=== PATIENT | female | born 1940 | race Caucasian/White ===

== ENCOUNTER 2016-05-07 07:04 | Outpatient (CLI) | payer MEDICARE ==
[2016-05-07 10:52] LABS: Bilirubin Negative (Negative); Blood, Urine Moderate (Negative); Glucose, Urine (Dipstick) Negative (Negative); Ketone, Urine Negative (Negative); Nitrite Negative (Negative); Protein, Urine (Dipstick) Negative (Neg-Trace); Urobilinogen 0.2 mg/dL (0.2-1.0)
[2016-05-07 11:00] LABS: Squamous Epithelial 0-3 HPF (0-3)
[2016-05-07 11:01] LABS: Bacteria/HPF 4+ HPF (None Seen)
== END 2016-05-07 07:05 | disposition home or self-care (01) ==
LOC: NAV LABSP 07:04
PROVIDERS: ATTEND Family Medicine
DX: R30.9 Painful micturition, unspecified (principal)
CPT/HCPCS: 81001; 87077; 87086; 87186

== ENCOUNTER 2016-05-12 11:44 | Outpatient (CLI) | payer MEDICARE | END 2016-05-12 11:45 | disposition home or self-care (01) | LOC: NAV LABSP 11:44 | PROVIDERS: ATTEND Family Medicine | DX: L02.511 Cutaneous abscess of right hand (principal) | CPT/HCPCS: 87070; 87077; 87205 ==

== ENCOUNTER 2016-06-02 11:19 | Outpatient (CLI) | payer MEDICARE | END 2016-06-02 11:20 | disposition home or self-care (01) | LOC: NAV LABSP 11:19 | PROVIDERS: ATTEND Family Medicine | DX: A04.7 Enterocolitis due to Clostridium difficile (principal) | CPT/HCPCS: 87324; 87449 ==

== ENCOUNTER 2016-06-16 14:12 | Emergency (ER) | payer MEDICARE ==
[2016-06-16 15:22] LABS: ALT (SGPT) 9 U/L (0-55); AST (SGOT) 10 U/L (5-34); Alkaline Phosphatase 90 U/L (40-150); Anion Gap 16 mmol/L (10-20); BUN (Urea Nitrogen) 10 mg/dL (9.8-20.1); Bilirubin, Total 0.3 mg/dL (0.2-1.2); Calc. Creatinine Clearance 0 mL/min (70-130); Calcium 8.4 mg/dL (7.8-10.44); Carbon Dioxide 19 mmol/L (23-31); Chloride 103 mmol/L (98-107); Estimated GFR-MDRD 63; Protein, Total 6.7 g/dL (5.8-8.1)
[2016-06-16] MEDS ORDERED: Sodium Chloride 0.9% 500 ML ONE (15:22)
[2016-06-16 15:26] LABS: #Monocytes 0.6 thou/uL (0.11-0.59); #Neutrophils 5.2 thou/uL (1.40-6.50); %Basophils 0.6 % (0.0-1.0); %Eosinophils 0.5 % (0.0-10.0); %Lymphocytes 14.8 % (21.0-51.0); Hematocrit 34.8 % (36.0-47.0); White Blood Cell (WBC) Count 6.9 thou/uL (4.8-10.8)
[2016-06-16 15:51] LABS: Bilirubin Negative (Negative); Blood, Urine Moderate (Negative); Glucose, Urine (Dipstick) Negative (Negative); Ketone, Urine Negative (Negative); Nitrite Negative (Negative); Protein, Urine (Dipstick) 100 mg/dL (Neg-Trace); Urobilinogen 0.2 mg/dL (0.2-1.0)
[2016-06-16 16:04] LABS: Bacteria/HPF 4+ HPF (None Seen); Squamous Epithelial 0-3 HPF (0-3)
[2016-06-16] MEDS ORDERED: Sulfameth/Trimethoprim DS 800-160mg TAB ONE (16:37)
[2016-06-16] MEDS ORDERED: metroNIDAZOLE 500 MG TAB ONE (16:38)
== END 2016-06-16 17:18 | disposition home or self-care (01) ==
LOC: NAV ERS 14:12
DX: R19.7 Diarrhea, unspecified (principal); N39.0 Urinary tract infection, site not specified; E11.9 Type 2 diabetes mellitus without complications; E03.9 Hypothyroidism, unspecified; E78.5 Hyperlipidemia, unspecified; I11.0 Hypertensive heart disease with heart failure; I50.9 Heart failure, unspecified; F41.9 Anxiety disorder, unspecified; F32.9 Major depressive disorder, single episode, unspecified
CPT/HCPCS: 36415; 51701; 80053; 81003; 81015; 85025; 87077; 87086; 87186; 87324; 87449; 96360; A4353; J7050

== ENCOUNTER 2016-07-22 08:33 | Emergency (ER) | payer MEDICARE ==
[2016-07-22 08:59] LABS: Bilirubin Negative (Negative); Blood, Urine Small (Negative); Clarity Cloudy (Clear); Glucose, Urine (Dipstick) Negative (Negative); Leukocyte Large (Negative); Nitrite Positive (Negative); Protein, Urine (Dipstick) Negative (Neg-Trace); Specific Gravity, Urine 1.015 (1.005-1.030); Urobilinogen 0.2 mg/dL (0.2-1.0)
[2016-07-22 09:21] LABS: Bacteria/HPF 3+ HPF (None Seen); Other Microscopic Description NO; Squamous Epithelial 0-3 HPF (0-3)
[2016-07-22 09:45] LABS: #Basophils 0.1 thou/uL (0.0-0.2); #Eosinphils 0.1 thou/uL (0.0-0.7); #Lymphocytes 1.2 thou/uL (1.20-3.40); #Monocytes 0.7 thou/uL (0.11-0.59); #Neutrophils 3.9 thou/uL (1.40-6.50); %Basophils 1.1 % (0.0-1.0); %Lymphocytes 20.2 % (21.0-51.0); %Monocytes 11.6 % (0.0-10.0); %Neutrophils 65.1 % (42.0-75.0); Hemoglobin 9.4 g/dL (12.0-16.0); Mean Corpuscular HGB CONC 30.7 g/dL (32.0-36.0); Mean Corpuscular Hemoglobin 25.4 pg (27.0-31.0); Mean Corpuscular Volume 82.8 fl (81.0-99.0); Mean Platelet Volume 5.4 fL (7.4-10.4); Platelet Count 219 thou/uL (130-400); RBC Distribution Width 17.3 % (11.5-14.5)
[2016-07-22 09:49] LABS: Anion Gap 14 mmol/L (10-20); BUN (Urea Nitrogen) 15 mg/dL (9.8-20.1); Calc. Creatinine Clearance 0 mL/min (70-130); Calcium 8.3 mg/dL (7.8-10.44); Carbon Dioxide 23 mmol/L (23-31); Chloride 103 mmol/L (98-107); Estimated GFR-MDRD 50; Glucose 177 mg/dL (83-110); Potassium 4.7 mmol/L (3.5-5.1); Sodium 135 mmol/L (136-145)
== END 2016-07-22 10:40 | disposition home or self-care (01) ==
LOC: NAV ERS 08:33
DX: N30.00 Acute cystitis without hematuria (principal); R19.7 Diarrhea, unspecified; I25.10 Atherosclerotic heart disease of native coronary artery without angina pectoris; E11.9 Type 2 diabetes mellitus without complications; E78.5 Hyperlipidemia, unspecified; I10 Essential (primary) hypertension; M19.90 Unspecified osteoarthritis, unspecified site; F41.9 Anxiety disorder, unspecified; F32.9 Major depressive disorder, single episode, unspecified
CPT/HCPCS: 51701; 80048; 81003; 81015; 85025; 87077; 87086; 87186; 87324; 87449; A4353

== ENCOUNTER 2016-08-11 13:11 | Outpatient (CLI) | payer MEDICARE ==
[2016-08-11 13:28] LABS: Bilirubin Negative (Negative); Blood, Urine Large (Negative); Clarity Turbid (Clear); Glucose, Urine (Dipstick) Negative (Negative); Leukocyte Large (Negative); Nitrite Negative (Negative); Protein, Urine (Dipstick) 100 mg/dL (Neg-Trace); Urobilinogen 0.2 mg/dL (0.2-1.0); pH, Urine 5.5 (5.0-9.0)
[2016-08-11 13:54] LABS: Specific Gravity, Urine 1.028 (1.002-1.036)
[2016-08-11 13:56] LABS: Bacteria/HPF 1+ HPF (None Seen); Renal Epithelial 0-3 HPF (0-3); Squamous Epithelial 0-3 HPF (0-3); Yeast-All Forms 3+ HPF (None Seen)
== END 2016-08-11 13:12 | disposition home or self-care (01) ==
LOC: NAV LAB 13:11
PROVIDERS: ATTEND Nurse Practitioner Family
DX: N39.0 Urinary tract infection, site not specified (principal); A04.7 Enterocolitis due to Clostridium difficile
CPT/HCPCS: 81003; 81015; 87086; 87324; 87449

== ENCOUNTER 2016-10-20 14:58 | Outpatient (CLI) | payer MEDICARE ==
[2016-10-20 16:05] LABS: ALT (SGPT) 6 U/L (8-55); AST (SGOT) 10 U/L (5-34); Albumin 3.2 g/dL (3.4-4.8); Alkaline Phosphatase 102 U/L (40-150); Anion Gap 15 mmol/L (10-20); BUN (Urea Nitrogen) 18 mg/dL (9.8-20.1); Bilirubin, Direct 0.2 mg/dL (0.1-0.3); Bilirubin, Total 0.3 mg/dL (0.2-1.2); Calc. Creatinine Clearance 0 mL/min (70-130); Calcium 8.4 mg/dL (7.8-10.44); Carbon Dioxide 22 mmol/L (23-31); Chloride 102 mmol/L (98-107); Estimated GFR-MDRD 33; Glucose 302 mg/dL (83-110); Potassium 4.5 mmol/L (3.5-5.1); Protein, Total 6.6 g/dL (6.0-8.3); Sodium 134 mmol/L (136-145)
[2016-10-20 16:36] LABS: #Eosinphils 0.2 thou/uL (0.0-0.7); #Lymphocytes 1.5 thou/uL (1.20-3.40); #Monocytes 0.9 thou/uL (0.11-0.59); #Neutrophils 6.8 thou/uL (1.40-6.50); %Basophils 0.3 % (0.0-1.0); %Eosinophils 2.3 % (0.0-10.0); %Lymphocytes 15.5 % (21.0-51.0); %Monocytes 9.9 % (0.0-10.0); Differential Comment SCANNED; Hemoglobin 7.4 g/dL (12.0-16.0); Mean Corpuscular HGB CONC 29.6 g/dL (32.0-36.0); Mean Corpuscular Hemoglobin 23.1 pg (27.0-31.0); Mean Corpuscular Volume 78.3 fl (81.0-99.0); Mean Platelet Volume 5.6 fL (7.4-10.4); Platelet Count 230 thou/uL (130-400); RBC Distribution Width 15.3 % (11.5-14.5); Red Blood Cell (RBC) Count 3.19 mill/uL (4.20-5.40); White Blood Cell (WBC) Count 9.4 thou/uL (4.8-10.8)
[2016-10-20 17:15] LABS: Cardiac Risk 2.9 (Less than 4.5)
[2016-10-21 11:00] LABS: Bilirubin Negative (Negative); Blood, Urine Large (Negative); Clarity Cloudy (Clear); Glucose, Urine (Dipstick) Negative (Negative); Leukocyte Moderate (Negative); Nitrite Negative (Negative); Protein, Urine (Dipstick) 100 mg/dL (Neg-Trace)
[2016-10-21 11:17] LABS: RBC/HPF GREATER THAN 50-TNTC HPF (0-3)
[2016-10-21 11:18] LABS: Bacteria/HPF 3+ HPF (None Seen); Squamous Epithelial 0-3 HPF (0-3); WBC/HPF 21-50 HPF (0-3)
== END 2016-10-20 14:59 | disposition home or self-care (01) ==
LOC: NAVSJIPCSP 14:58 → NAV LAB 14:59
PROVIDERS: ATTEND Nurse Practitioner Family
DX: R35.0 Frequency of micturition (principal); E78.5 Hyperlipidemia, unspecified; I10 Essential (primary) hypertension; E11.9 Type 2 diabetes mellitus without complications; D64.9 Anemia, unspecified; R39.9 Unspecified symptoms and signs involving the genitourinary system
CPT/HCPCS: 80048; 80061; 80076; 81003; 81015; 83036; 84443; 85025; 87086

== ENCOUNTER 2016-11-03 13:40 | Observation (INO) | payer MEDICARE ==
[2016-11-03 14:23] LABS: #Eosinphils 0.3 thou/uL (0.0-0.7); #Lymphocytes 1.4 thou/uL (1.20-3.40); #Monocytes 0.5 thou/uL (0.11-0.59); #Neutrophils 5.4 thou/uL (1.40-6.50); %Basophils 0.6 % (0.0-1.0); %Eosinophils 3.7 % (0.0-10.0); %Lymphocytes 18.2 % (21.0-51.0); %Monocytes 6.9 % (0.0-10.0); %Neutrophils 70.7 % (42.0-75.0); Hemoglobin 7.2 g/dL (12.0-16.0); Mean Corpuscular HGB CONC 29.5 g/dL (32.0-36.0); Mean Corpuscular Hemoglobin 22.2 pg (27.0-31.0); Mean Corpuscular Volume 75.3 fl (81.0-99.0); Mean Platelet Volume 4.6 fL (7.4-10.4); Platelet Count 240 thou/uL (130-400); Red Blood Cell (RBC) Count 3.25 mill/uL (4.20-5.40); White Blood Cell (WBC) Count 7.7 thou/uL (4.8-10.8)
[2016-11-03 14:37] LABS: ALT (SGPT) 6 U/L (8-55); AST (SGOT) 10 U/L (5-34); Albumin 3.1 g/dL (3.4-4.8); Alkaline Phosphatase 90 U/L (40-150); Anion Gap 14 mmol/L (10-20); BUN (Urea Nitrogen) 23 mg/dL (9.8-20.1); Bilirubin, Total 0.2 mg/dL (0.2-1.2); CK (CPK) 47 U/L (29-168); Calc. Creatinine Clearance 0 mL/min (70-130); Calcium 8.4 mg/dL (7.8-10.44); Carbon Dioxide 20 mmol/L (23-31); Chloride 103 mmol/L (98-107); Estimated GFR-MDRD 29; Globulin 3.8 g/dL (2.4-3.5); Glucose 268 mg/dL (83-110); Potassium 4.1 mmol/L (3.5-5.1); Protein, Total 6.9 g/dL (6.0-8.3); Sodium 133 mmol/L (136-145)
[2016-11-03 14:39] LABS: CKMB 2.5 ng/mL (0-6.6); Troponin I Less than 0.010 ng/mL (< 0.028)
[2016-11-03 14:47] LABS: Bilirubin Negative (Negative); Blood, Urine Negative (Negative); Glucose, Urine (Dipstick) 250 mg/dL (Negative); Leukocyte Small (Negative); Nitrite Positive (Negative); Protein, Urine (Dipstick) Negative (Neg-Trace); Specific Gravity, Urine 1.025 (1.005-1.030); Urobilinogen 0.2 mg/dL (0.2-1.0)
[2016-11-03 14:48] LABS: Clarity SL HAZY (Clear)
[2016-11-03 14:56] LABS: Bacteria/HPF 4+ HPF (None Seen); RBC/HPF 0-3 HPF (0-3); Squamous Epithelial 0-3 HPF (0-3)
[2016-11-03] MEDS ORDERED: Sodium Chloride 0.9% 100 ML ONE (15:35)
[2016-11-03] MEDS ORDERED: cefTRIAXone\\ROCEPHIN 1 GM VIAL ONE (15:35)
[2016-11-03 16:20] VITALS: BMI 29.1
[2016-11-03] MEDS ORDERED: Furosemide 20 MG/2 ML VIAL SLOW IVP SCH (18:15)
[2016-11-03] MEDS ORDERED: Acetaminophen 325 MG TAB PO PRN (19:24)
[2016-11-03] MEDS ORDERED: Milk Of Magnesia 30 ML UDCUP PO PRN (19:24)
[2016-11-03] MEDS ORDERED: Ondansetron ODT 4 MG TAB PO PRN (19:24)
[2016-11-03] MEDS ORDERED: Ergocalciferol 1.25 MG(50,000 UNITS) CAP PO SCH (19:30)
[2016-11-03] MEDS: Metoprolol Tartrate 50 MG TAB PO SCH (20:42)
[2016-11-03] MEDS: Saccharomyces boulardii 250 MG CAP PO SCH (20:43)
[2016-11-03] MEDS ORDERED: Dextrose 5% in Water 1,000 ML IV PRN (20:45)
[2016-11-03] MEDS ORDERED: HumaLOG 300 UNITS/3 ML VIAL SC PRN ×2 (20:45)
[2016-11-03] MEDS ORDERED: Dextrose 50% Abboject 50 ML SYRINGE IVP PRN (20:47)
[2016-11-03] MEDS ORDERED: Levemir Flexpen 100 UNITS/ML PEN SC SCH (21:00)
[2016-11-03] MEDS ORDERED: Donepezil HCl 10 MG TAB PO SCH (21:00)
[2016-11-03] MEDS ORDERED: Simvastatin 20 MG TAB PO SCH (21:00)
[2016-11-03] MEDS ORDERED: Gabapentin 300 MG CAP PO SCH (21:00)
[2016-11-03] MEDS ORDERED: Melatonin 3 MG TAB PO SCH (21:00)
[2016-11-03] MEDS ORDERED: Lorazepam 0.5 MG TAB PO SCH (21:00)
[2016-11-03] MEDS ORDERED: Lorazepam 1 MG TAB PO SCH (21:15)
[2016-11-03] MEDS ORDERED: Sodium Chloride 0.9% 10 ML ONE (21:56)
[2016-11-04] MEDS ORDERED: Levothyroxine Sodium 25 MCG TAB PO SCH (06:00)
[2016-11-04] MEDS ORDERED: Potassium Chloride 20 MEQ TAB PO SCH (08:00)
[2016-11-04] MEDS ORDERED: Ferrous Sulfate 325 MG TAB PO SCH (08:00)
[2016-11-04] MEDS: Metoprolol Tartrate 50 MG TAB PO SCH (08:06)
[2016-11-04] MEDS: Saccharomyces boulardii 250 MG CAP PO SCH (08:06)
[2016-11-04] MEDS ORDERED: Levemir Flexpen 100 UNITS/ML PEN SC SCH (09:00)
[2016-11-04] MEDS ORDERED: Aspirin 81 mg Enteric Coated Tablet PO SCH (09:00)
[2016-11-04] MEDS ORDERED: Allopurinol 100 MG TAB PO SCH (09:00)
[2016-11-04] MEDS ORDERED: TROSPIUM 20 MG TABLET PO SCH (09:00)
[2016-11-04] MEDS ORDERED: Lorazepam 1 MG TAB PO SCH (09:00)
[2016-11-04] MEDS ORDERED: Folic Acid 1 MG TAB PO SCH (09:00)
[2016-11-04] MEDS ORDERED: Pioglitazone HCl 15 MG TAB PO SCH (09:00)
[2016-11-04 13:00] LABS: Anion Gap 15 mmol/L (10-20); BUN (Urea Nitrogen) 17 mg/dL (9.8-20.1); Calc. Creatinine Clearance 40 mL/min (70-130); Calcium 8.5 mg/dL (7.8-10.44); Carbon Dioxide 23 mmol/L (23-31); Chloride 103 mmol/L (98-107); Estimated GFR-MDRD 35; Glucose 139 mg/dL (83-110); Potassium 4.6 mmol/L (3.5-5.1); Sodium 136 mmol/L (136-145)
[2016-11-04 13:31] LABS: #Basophils 0.1 thou/uL (0.0-0.2); #Eosinphils 0.5 thou/uL (0.0-0.7); #Lymphocytes 1.5 thou/uL (1.20-3.40); #Monocytes 0.7 thou/uL (0.11-0.59); #Neutrophils 5.7 thou/uL (1.40-6.50); %Basophils 0.9 % (0.0-1.0); %Eosinophils 5.7 % (0.0-10.0); %Lymphocytes 18.1 % (21.0-51.0); %Monocytes 7.7 % (0.0-10.0); %Neutrophils 67.6 % (42.0-75.0); Hemoglobin 10.3 g/dL (12.0-16.0); Mean Corpuscular Hemoglobin 24.6 pg (27.0-31.0); Mean Corpuscular Volume 79.3 fl (81.0-99.0); Mean Platelet Volume 5.2 fL (7.4-10.4); Platelet Count 278 thou/uL (130-400); RBC Distribution Width 15.6 % (11.5-14.5); Red Blood Cell (RBC) Count 4.19 mill/uL (4.20-5.40); White Blood Cell (WBC) Count 8.4 thou/uL (4.8-10.8)
[2016-11-04 13:47] LABS: Hemoglobin A1c 7.5 % (4.0-6.0)
[2016-11-04 19:44] VITALS: BP 148/70; TEMP 96.1
== END 2016-11-04 20:09 | disposition home or self-care (01) ==
LOC: NAV ERS 13:40 → NAV ACUTE 16:03
PROVIDERS: ADMIT Family Medicine; ATTEND Family Medicine
PROC: 30233N1 Transfusion of Nonautologous Red Blood Cells into Peripheral Vein, Percutaneous Approach (ICD-10-PCS; principal; 2016-11-03)
DX: D64.9 Anemia, unspecified (principal); E11.65 Type 2 diabetes mellitus with hyperglycemia; I10 Essential (primary) hypertension; E78.5 Hyperlipidemia, unspecified; E03.9 Hypothyroidism, unspecified; M10.9 Gout, unspecified; G62.9 Polyneuropathy, unspecified; R32 Unspecified urinary incontinence; Z79.82 Long term (current) use of aspirin; Z79.899 Other long term (current) drug therapy
CPT/HCPCS: 36416; 36430; 51701; 80048; 80053; 81003; 81015; 82553; 83036; 83605; 84484; 85025; 86850; 86900; 86901; 87077; 87086; 87186; 93005; 94760; 96374; 96375; A4216; A4353; G0378; J0696; J1815; J1940; J7050; P9016

== ENCOUNTER 2016-11-09 12:05 | Inpatient (IN) | payer MEDICARE ==
[2016-11-09] MEDS ORDERED: Loperamide HCl 2 MG CAP PO PRN (13:18)
[2016-11-09] MEDS ORDERED: Acetaminophen 325 MG TAB PO PRN (13:18)
[2016-11-09] MEDS ORDERED: Guaifenesin DM 100-10/5 ML UDCUP PO PRN (13:18)
[2016-11-09] MEDS: cefTRIAXone\\ROCEPHIN 2 GM in Sodium Chloride 0.9% 100 ML IVPB SCH (13:56)
[2016-11-09] MEDS: Sodium Chloride 0.9% 20 ML ONE (13:57)
[2016-11-09] MEDS: Atorvastatin Calcium 10 MG TAB PO SCH (20:48)
[2016-11-09] MEDS: Donepezil HCl 10 MG TAB PO SCH (20:49)
[2016-11-09] MEDS: Famotidine 20 MG TAB PO SCH (20:49)
[2016-11-09] MEDS: Gabapentin 300 MG CAP PO SCH (20:49)
[2016-11-09] MEDS: TROSPIUM 20 MG TABLET PO SCH (20:50)
[2016-11-09] MEDS: Metoprolol Tartrate 50 MG TAB PO SCH (20:50)
[2016-11-09] MEDS: Simvastatin 20 MG TAB PO SCH (20:50)
[2016-11-09] MEDS: Docusate 100 MG CAP PO SCH (20:51)
[2016-11-09] MEDS ORDERED: Donepezil HCl 10 MG TAB PO SCH (21:00)
[2016-11-09] MEDS ORDERED: Lorazepam 1 MG TAB PO SCH (21:00)
[2016-11-09] MEDS ORDERED: Lorazepam 0.5 MG TAB PO SCH (21:00)
[2016-11-09] MEDS ORDERED: Non-Formulary Item 1 EACH (Metoprolol Tartrate [Lopressor] 100 MG) PO SCH (21:00)
[2016-11-09] MEDS ORDERED: Gabapentin 300 MG CAP PO SCH (21:00)
[2016-11-09] MEDS ORDERED: Melatonin 3 MG TAB PO SCH (21:15)
[2016-11-10 05:14] LABS: #Basophils 0.1 thou/uL (0.0-0.2); #Eosinphils 0.2 thou/uL (0.0-0.7); #Lymphocytes 1.8 thou/uL (1.20-3.40); #Monocytes 0.6 thou/uL (0.11-0.59); #Neutrophils 3.1 thou/uL (1.40-6.50); %Basophils 0.9 % (0.0-1.0); %Eosinophils 3.3 % (0.0-10.0); %Lymphocytes 31.4 % (21.0-51.0); %Monocytes 10.1 % (0.0-10.0); %Neutrophils 54.2 % (42.0-75.0); Anisocytosis MODERATE=16-30 cells (100X) (0-5/hpf); Hemoglobin 11.8 g/dL (12.0-16.0); MDiff Complete? YES; Mean Corpuscular HGB CONC 30.7 g/dL (32.0-36.0); Mean Corpuscular Hemoglobin 23.9 pg (27.0-31.0); Mean Corpuscular Volume 77.9 fl (81.0-99.0); Mean Platelet Volume 5.2 fL (7.4-10.4); Microcytosis SLIGHT = 6-15 cells (100X) (0-5/hpf); Platelet Count 285 thou/uL (130-400); RBC Distribution Width 16.5 % (11.5-14.5); Red Blood Cell (RBC) Count 4.94 mill/uL (4.20-5.40); White Blood Cell (WBC) Count 5.8 thou/uL (4.8-10.8)
[2016-11-10] MEDS: Levothyroxine Sodium 50 MCG TAB PO SCH (05:30)
[2016-11-10] MEDS: Potassium Chloride 10 MEQ TAB PO SCH (08:10)
[2016-11-10] MEDS ORDERED: Levothyroxine Sodium 25 MCG TAB PO SCH (09:00)
[2016-11-10] MEDS ORDERED: Non-Formulary Item 1 EACH (Pioglitazone Hcl [Pioglitazone Hcl] 30 MG) PO SCH (09:00)
[2016-11-10] MEDS ORDERED: SOLIFENACIN SUCCINATE 10 MG PO SCH (09:00)
[2016-11-10] MEDS ORDERED: DULOXETINE HCL 60 MG PO SCH (09:00)
[2016-11-10] MEDS: Metoprolol Tartrate 50 MG TAB PO SCH ×2 (09:05→20:42)
[2016-11-10] MEDS: Docusate 100 MG CAP PO SCH ×2 (09:05→20:40)
[2016-11-10] MEDS: Pioglitazone HCl 15 MG TAB PO SCH (09:10)
[2016-11-10] MEDS: Aspirin 81 mg Enteric Coated Tablet PO SCH (09:10)
[2016-11-10] MEDS: TROSPIUM 20 MG TABLET PO SCH ×2 (09:10→20:42)
[2016-11-10] MEDS: Allopurinol 100 MG TAB PO SCH (09:10)
[2016-11-10] MEDS: Famotidine 20 MG TAB PO SCH ×2 (09:10→20:41)
[2016-11-10 09:15] LABS: ALT (SGPT) 7 U/L (8-55); AST (SGOT) 16 U/L (5-34); Albumin 3.1 g/dL (3.4-4.8); Alkaline Phosphatase 83 U/L (40-150); Anion Gap 14 mmol/L (10-20); BUN (Urea Nitrogen) 9 mg/dL (9.8-20.1); Bilirubin, Total 0.4 mg/dL (0.2-1.2); Calc. Creatinine Clearance 55 mL/min (70-130); Calcium 8.9 mg/dL (7.8-10.44); Carbon Dioxide 25 mmol/L (23-31); Chloride 101 mmol/L (98-107); Estimated GFR-MDRD 50; Globulin 3.8 g/dL (2.4-3.5); Glucose 137 mg/dL (83-110); Potassium 3.6 mmol/L (3.5-5.1); Protein, Total 6.9 g/dL (6.0-8.3); Sodium 136 mmol/L (136-145)
[2016-11-10] MEDS: Folic Acid 1 MG TAB PO SCH (09:15)
[2016-11-10] MEDS ORDERED: Sodium Chloride 0.9% 20 ML ONE (12:31)
[2016-11-10] MEDS ORDERED: Dextrose 50% Abboject 50 ML SYRINGE IVP PRN (13:47)
[2016-11-10] MEDS ORDERED: Dextrose 5% in Water 1,000 ML IV PRN (13:47)
[2016-11-10] MEDS: cefTRIAXone\\ROCEPHIN 2 GM in Sodium Chloride 0.9% 100 ML IVPB SCH (14:21)
[2016-11-10] MEDS: HumaLOG 300 UNITS/3 ML VIAL SC PRN (14:22)
[2016-11-10] MEDS: Donepezil HCl 10 MG TAB PO SCH (20:40)
[2016-11-10] MEDS: Atorvastatin Calcium 10 MG TAB PO SCH (20:40)
[2016-11-10] MEDS: Melatonin 3 MG TAB PO SCH (20:41)
[2016-11-10] MEDS: Gabapentin 300 MG CAP PO SCH (20:41)
[2016-11-10] MEDS: Simvastatin 20 MG TAB PO SCH (20:42)
[2016-11-11] MEDS: Lorazepam 1 MG TAB PO PRN ×2 (00:14→21:17)
[2016-11-11] MEDS: Levothyroxine Sodium 50 MCG TAB PO SCH (05:45)
[2016-11-11] MEDS: Potassium Chloride 10 MEQ TAB PO SCH (08:05)
[2016-11-11] MEDS: Allopurinol 100 MG TAB PO SCH (09:06)
[2016-11-11] MEDS: Aspirin 81 mg Enteric Coated Tablet PO SCH (09:07)
[2016-11-11] MEDS: Docusate 100 MG CAP PO SCH ×2 (09:08→21:16)
[2016-11-11] MEDS: Folic Acid 1 MG TAB PO SCH (09:09)
[2016-11-11] MEDS: Famotidine 20 MG TAB PO SCH ×2 (09:09→21:16)
[2016-11-11] MEDS: Metoprolol Tartrate 50 MG TAB PO SCH ×2 (09:09→21:16)
[2016-11-11] MEDS: TROSPIUM 20 MG TABLET PO SCH ×2 (09:10→21:16)
[2016-11-11] MEDS: Pioglitazone HCl 15 MG TAB PO SCH (09:10)
[2016-11-11] MEDS: HumaLOG 300 UNITS/3 ML VIAL SC PRN (12:10)
[2016-11-11] MEDS: cefTRIAXone\\ROCEPHIN 2 GM in Sodium Chloride 0.9% 100 ML IVPB SCH (14:15)
[2016-11-11] MEDS ORDERED: Sodium Chloride 0.9% 20 ML ONE (14:23)
[2016-11-11] MEDS: Melatonin 3 MG TAB PO SCH (21:16)
[2016-11-11] MEDS: Atorvastatin Calcium 10 MG TAB PO SCH (21:17)
[2016-11-11] MEDS: Donepezil HCl 10 MG TAB PO SCH (21:17)
[2016-11-11] MEDS: Gabapentin 300 MG CAP PO SCH (21:17)
[2016-11-12] MEDS: Levothyroxine Sodium 50 MCG TAB PO SCH (05:40)
[2016-11-12] MEDS: Folic Acid 1 MG TAB PO SCH (10:02)
[2016-11-12] MEDS: Aspirin 81 mg Enteric Coated Tablet PO SCH (10:02)
[2016-11-12] MEDS: Potassium Chloride 10 MEQ TAB PO SCH (10:02)
[2016-11-12] MEDS: Metoprolol Tartrate 50 MG TAB PO SCH ×2 (10:03→21:25)
[2016-11-12] MEDS: Famotidine 20 MG TAB PO SCH ×2 (10:03→21:26)
[2016-11-12] MEDS: Docusate 100 MG CAP PO SCH ×2 (10:03→21:25)
[2016-11-12] MEDS: Pioglitazone HCl 15 MG TAB PO SCH (10:04)
[2016-11-12] MEDS: TROSPIUM 20 MG TABLET PO SCH ×2 (10:04→21:26)
[2016-11-12] MEDS: Allopurinol 100 MG TAB PO SCH (10:04)
[2016-11-12] MEDS ORDERED: Sodium Chloride 0.9% 20 ML ONE (13:59)
[2016-11-12 14:19] VITALS: BMI 29.6
[2016-11-12] MEDS: cefTRIAXone\\ROCEPHIN 2 GM in Sodium Chloride 0.9% 100 ML IVPB SCH (14:42)
[2016-11-12] MEDS: Gabapentin 300 MG CAP PO SCH (21:25)
[2016-11-12] MEDS: Melatonin 3 MG TAB PO SCH (21:25)
[2016-11-12] MEDS: Donepezil HCl 10 MG TAB PO SCH (21:26)
[2016-11-12] MEDS: Atorvastatin Calcium 10 MG TAB PO SCH (21:26)
[2016-11-13] MEDS: Levothyroxine Sodium 50 MCG TAB PO SCH (05:46)
[2016-11-13 05:57] LABS: INR-International Normal Ratio 1.1; PTT 35.3 SEC (22.9-36.1); Prothrombin Time 14.1 SEC (12.0-14.7)
[2016-11-13] MEDS: Pioglitazone HCl 15 MG TAB PO SCH (08:16)
[2016-11-13] MEDS: Metoprolol Tartrate 50 MG TAB PO SCH ×2 (08:16→21:07)
[2016-11-13] MEDS: Allopurinol 100 MG TAB PO SCH (08:16)
[2016-11-13] MEDS: Famotidine 20 MG TAB PO SCH ×2 (08:17→21:09)
[2016-11-13] MEDS: Folic Acid 1 MG TAB PO SCH (08:17)
[2016-11-13] MEDS: Docusate 100 MG CAP PO SCH ×2 (08:17→21:10)
[2016-11-13] MEDS: TROSPIUM 20 MG TABLET PO SCH ×2 (08:19→21:10)
[2016-11-13] MEDS: Potassium Chloride 10 MEQ TAB PO SCH (08:26)
[2016-11-13] MEDS: Aspirin 81 mg Enteric Coated Tablet PO SCH (08:27)
[2016-11-13] MEDS: HumaLOG 300 UNITS/3 ML VIAL SC PRN (11:25)
[2016-11-13] MEDS: cefTRIAXone\\ROCEPHIN 2 GM in Sodium Chloride 0.9% 100 ML IVPB SCH (13:55)
[2016-11-13] MEDS: Gabapentin 300 MG CAP PO SCH (21:06)
[2016-11-13] MEDS: Atorvastatin Calcium 10 MG TAB PO SCH (21:07)
[2016-11-13] MEDS: Lorazepam 1 MG TAB PO PRN (21:08)
[2016-11-13] MEDS: Donepezil HCl 10 MG TAB PO SCH (21:09)
[2016-11-13] MEDS: Melatonin 3 MG TAB PO SCH (21:10)
[2016-11-14] MEDS: Levothyroxine Sodium 50 MCG TAB PO SCH (05:53)
[2016-11-14] MEDS: Pioglitazone HCl 15 MG TAB PO SCH (08:57)
[2016-11-14] MEDS: Allopurinol 100 MG TAB PO SCH (08:58)
[2016-11-14] MEDS: Folic Acid 1 MG TAB PO SCH (08:58)
[2016-11-14] MEDS: Potassium Chloride 10 MEQ TAB PO SCH (08:58)
[2016-11-14] MEDS: Famotidine 20 MG TAB PO SCH ×2 (08:59→21:42)
[2016-11-14] MEDS: Docusate 100 MG CAP PO SCH ×2 (08:59→21:42)
[2016-11-14] MEDS: Metoprolol Tartrate 50 MG TAB PO SCH ×2 (08:59→21:43)
[2016-11-14] MEDS: Aspirin 81 mg Enteric Coated Tablet PO SCH (09:00)
[2016-11-14] MEDS: TROSPIUM 20 MG TABLET PO SCH ×2 (09:00→21:43)
[2016-11-14] MEDS: cefTRIAXone\\ROCEPHIN 2 GM in Sodium Chloride 0.9% 100 ML IVPB SCH (14:03)
[2016-11-14] MEDS: HumaLOG 300 UNITS/3 ML VIAL SC PRN (17:35)
[2016-11-14] MEDS: Atorvastatin Calcium 10 MG TAB PO SCH (21:42)
[2016-11-14] MEDS: Gabapentin 300 MG CAP PO SCH (21:42)
[2016-11-14] MEDS: Donepezil HCl 10 MG TAB PO SCH (21:42)
[2016-11-14] MEDS: Melatonin 3 MG TAB PO SCH (21:43)
[2016-11-14] MEDS: Lorazepam 1 MG TAB PO PRN (21:43)
[2016-11-15] MEDS: Levothyroxine Sodium 50 MCG TAB PO SCH (06:08)
[2016-11-15] MEDS: Potassium Chloride 10 MEQ TAB PO SCH (08:05)
[2016-11-15 08:46] VITALS: BP 132/60; TEMP 97.1
[2016-11-15] MEDS: Docusate 100 MG CAP PO SCH (09:07)
[2016-11-15] MEDS: Allopurinol 100 MG TAB PO SCH (09:07)
[2016-11-15] MEDS: Aspirin 81 mg Enteric Coated Tablet PO SCH (09:07)
[2016-11-15] MEDS: Folic Acid 1 MG TAB PO SCH (09:08)
[2016-11-15] MEDS: Famotidine 20 MG TAB PO SCH (09:08)
[2016-11-15] MEDS: Pioglitazone HCl 15 MG TAB PO SCH (09:09)
[2016-11-15] MEDS: Metoprolol Tartrate 50 MG TAB PO SCH (09:09)
[2016-11-15] MEDS: TROSPIUM 20 MG TABLET PO SCH (09:11)
== END 2016-11-15 08:45 | disposition swing bed (61) | DRG 690 ==
LOC: NAV ACUTE 12:05
PROVIDERS: ADMIT Family Medicine; ATTEND Family Medicine
DX: N39.0 Urinary tract infection, site not specified (principal); E11.40 Type 2 diabetes mellitus with diabetic neuropathy, unspecified; F03.90 Unspecified dementia, unspecified severity, without behavioral disturbance, psychotic disturbance, mood disturbance, and anxiety; D64.9 Anemia, unspecified; B96.20 Unspecified Escherichia coli [E. coli] as the cause of diseases classified elsewhere; R53.1 Weakness; M1A.9XX0 Chronic gout, unspecified, without tophus (tophi); E78.5 Hyperlipidemia, unspecified; I10 Essential (primary) hypertension; G47.00 Insomnia, unspecified; F41.9 Anxiety disorder, unspecified; E66.9 Obesity, unspecified; Z68.29 Body mass index [BMI] 29.0-29.9, adult; F32.9 Major depressive disorder, single episode, unspecified; K21.9 Gastro-esophageal reflux disease without esophagitis; M16.12 Unilateral primary osteoarthritis, left hip; Z87.891 Personal history of nicotine dependence; Z88.8 Allergy status to other drugs, medicaments and biological substances; Z91.048 Other nonmedicinal substance allergy status
CPT/HCPCS: 36415; 36416; 80053; 85025; 85610; 85730; A4216; G8987-GO-CK; G8988-GO-CI; J0696; J7050

== ENCOUNTER 2016-11-15 09:27 | Inpatient (IN) | payer MEDICARE ==
[2016-11-15 11:47] VITALS: BMI 31.0
[2016-11-15] MEDS ORDERED: Fleet Enema 133 ML BOT PR PRN (13:23)
[2016-11-15] MEDS ORDERED: Milk Of Magnesia 30 ML UDCUP PO PRN (13:23)
[2016-11-15] MEDS ORDERED: Loperamide HCl 2 MG CAP PO PRN (13:23)
[2016-11-15] MEDS ORDERED: Calcium Carbonate 500 MG ChewTAB PO PRN (13:23)
[2016-11-15] MEDS ORDERED: Bisacodyl 5 MG TAB PO PRN (13:23)
[2016-11-15] MEDS: cefTRIAXone\\ROCEPHIN 2 GM in Sodium Chloride 0.9% 100 ML IVPB SCH (15:00)
[2016-11-15] MEDS ORDERED: Dextrose 50% Abboject 50 ML SYRINGE IVP PRN (18:33)
[2016-11-15] MEDS ORDERED: Dextrose 5% in Water 1,000 ML IV PRN (18:33)
[2016-11-15] MEDS ORDERED: Non-Formulary Item 1 EACH (Metoprolol Tartrate [Lopressor] 100 MG) PO SCH (21:00)
[2016-11-15] MEDS ORDERED: Lorazepam 0.5 MG TAB PO SCH (21:00)
[2016-11-15] MEDS ORDERED: Simvastatin 20 MG TAB PO SCH (21:00)
[2016-11-15] MEDS ORDERED: Lorazepam 1 MG TAB PO SCH (21:15)
[2016-11-15] MEDS: Gabapentin 300 MG CAP PO SCH (21:25)
[2016-11-15] MEDS: TROSPIUM 20 MG TABLET PO SCH (21:26)
[2016-11-15] MEDS: Donepezil HCl 10 MG TAB PO SCH (21:26)
[2016-11-15] MEDS: Atorvastatin Calcium 10 MG TAB PO SCH (21:26)
[2016-11-15] MEDS: Metoprolol Tartrate 50 MG TAB PO SCH (21:27)
[2016-11-15] MEDS: Famotidine 20 MG TAB PO SCH (21:28)
[2016-11-16] MEDS: Ondansetron ODT 4 MG TAB PO PRN ×2 (00:46→08:21)
[2016-11-16] MEDS: Levothyroxine Sodium 50 MCG TAB PO SCH (05:48)
[2016-11-16 07:28] LABS: ALT (SGPT) 8 U/L (8-55); AST (SGOT) 14 U/L (5-34); Albumin 3.2 g/dL (3.4-4.8); Alkaline Phosphatase 72 U/L (40-150); Anion Gap 16 mmol/L (10-20); BUN (Urea Nitrogen) 23 mg/dL (9.8-20.1); Bilirubin, Total 0.2 mg/dL (0.2-1.2); Calc. Creatinine Clearance 47 mL/min (70-130); Calcium 8.5 mg/dL (7.8-10.44); Carbon Dioxide 19 mmol/L (23-31); Chloride 103 mmol/L (98-107); Estimated GFR-MDRD 39; Globulin 3.7 g/dL (2.4-3.5); Glucose 156 mg/dL (83-110); Potassium 4.4 mmol/L (3.5-5.1); Protein, Total 6.9 g/dL (6.0-8.3); Sodium 134 mmol/L (136-145)
[2016-11-16 07:38] LABS: #Eosinphils 0.2 thou/uL (0.0-0.7); #Lymphocytes 1.9 thou/uL (1.20-3.40); #Monocytes 0.7 thou/uL (0.11-0.59); #Neutrophils 5.5 thou/uL (1.40-6.50); %Basophils 0.6 % (0.0-1.0); %Eosinophils 2.9 % (0.0-10.0); %Lymphocytes 22.1 % (21.0-51.0); %Monocytes 8.7 % (0.0-10.0); %Neutrophils 65.7 % (42.0-75.0); Hemoglobin 11.9 g/dL (12.0-16.0); Mean Corpuscular HGB CONC 30.7 g/dL (32.0-36.0); Mean Corpuscular Volume 78.2 fl (81.0-99.0); Mean Platelet Volume 6.2 fL (7.4-10.4); Platelet Count 97 thou/uL (130-400); RBC Distribution Width 17.4 % (11.5-14.5); Red Blood Cell (RBC) Count 4.93 mill/uL (4.20-5.40); White Blood Cell (WBC) Count 8.4 thou/uL (4.8-10.8)
[2016-11-16 07:39] LABS: Anisocytosis SLIGHT = 6-15 cells (100X) (0-5/hpf); MDiff Complete? YES; Ovalocytes SLIGHT = 2-5 cells (100X) (0-1/hpf); PLT Morphology Comment Appears Decreased; Platelet Clumps SLIGHT
[2016-11-16] MEDS: Metoprolol Tartrate 50 MG TAB PO SCH ×2 (08:55→20:30)
[2016-11-16] MEDS: Famotidine 20 MG TAB PO SCH ×2 (08:56→20:29)
[2016-11-16] MEDS: Potassium Chloride 10 MEQ TAB PO SCH (08:56)
[2016-11-16] MEDS: Pioglitazone HCl 15 MG TAB PO SCH (08:57)
[2016-11-16] MEDS: Lorazepam 1 MG TAB PO SCH ×2 (08:57→20:29)
[2016-11-16] MEDS: Folic Acid 1 MG TAB PO SCH (08:58)
[2016-11-16] MEDS: Allopurinol 100 MG TAB PO SCH (08:59)
[2016-11-16] MEDS: Aspirin 81 mg Enteric Coated Tablet PO SCH (08:59)
[2016-11-16] MEDS: TROSPIUM 20 MG TABLET PO SCH ×2 (08:59→20:30)
[2016-11-16] MEDS ORDERED: DULOXETINE HCL 60 MG PO SCH (09:00)
[2016-11-16] MEDS ORDERED: Levothyroxine Sodium 25 MCG TAB PO SCH (09:00)
[2016-11-16] MEDS ORDERED: Lorazepam 1 MG TAB PO SCH (09:00)
[2016-11-16] MEDS ORDERED: Non-Formulary Item 1 EACH (Pioglitazone Hcl [Pioglitazone Hcl] 30 MG) PO SCH (09:00)
[2016-11-16] MEDS ORDERED: Non-Formulary Item 1 EACH (Cholecalciferol (Vitamin D3) [Vitamin D3] 1,000 UNITS) PO SCH (09:00)
[2016-11-16] MEDS: Acetaminophen 325 MG TAB PO PRN (10:17)
[2016-11-16] MEDS: cefTRIAXone\\ROCEPHIN 2 GM in Sodium Chloride 0.9% 100 ML IVPB SCH (14:43)
[2016-11-16] MEDS: Donepezil HCl 10 MG TAB PO SCH (20:29)
[2016-11-16] MEDS: Gabapentin 300 MG CAP PO SCH (20:29)
[2016-11-16] MEDS: Atorvastatin Calcium 10 MG TAB PO SCH (20:29)
[2016-11-17] MEDS: Levothyroxine Sodium 50 MCG TAB PO SCH (05:53)
[2016-11-17] MEDS: TROSPIUM 20 MG TABLET PO SCH ×2 (09:35→20:26)
[2016-11-17] MEDS: Potassium Chloride 10 MEQ TAB PO SCH (09:35)
[2016-11-17] MEDS: Allopurinol 100 MG TAB PO SCH (09:35)
[2016-11-17] MEDS: Pioglitazone HCl 15 MG TAB PO SCH (09:36)
[2016-11-17] MEDS: Metoprolol Tartrate 50 MG TAB PO SCH ×2 (09:36→20:24)
[2016-11-17] MEDS: Aspirin 81 mg Enteric Coated Tablet PO SCH (09:36)
[2016-11-17] MEDS: Lorazepam 1 MG TAB PO SCH ×2 (09:36→20:24)
[2016-11-17] MEDS: Famotidine 20 MG TAB PO SCH ×2 (09:37→20:24)
[2016-11-17] MEDS: Folic Acid 1 MG TAB PO SCH (09:38)
[2016-11-17] MEDS: HumaLOG 300 UNITS/3 ML VIAL SC PRN (11:42)
[2016-11-17] MEDS: cefTRIAXone\\ROCEPHIN 2 GM in Sodium Chloride 0.9% 100 ML IVPB SCH (14:16)
[2016-11-17] MEDS: Gabapentin 300 MG CAP PO SCH (20:23)
[2016-11-17] MEDS: Donepezil HCl 10 MG TAB PO SCH (20:25)
[2016-11-17] MEDS: Atorvastatin Calcium 10 MG TAB PO SCH (20:26)
[2016-11-18] MEDS: Levothyroxine Sodium 50 MCG TAB PO SCH (05:39)
[2016-11-18] MEDS: TROSPIUM 20 MG TABLET PO SCH ×2 (09:59→20:40)
[2016-11-18] MEDS: Metoprolol Tartrate 50 MG TAB PO SCH ×2 (09:59→20:40)
[2016-11-18] MEDS: Famotidine 20 MG TAB PO SCH ×2 (09:59→20:39)
[2016-11-18] MEDS: Aspirin 81 mg Enteric Coated Tablet PO SCH (09:59)
[2016-11-18] MEDS: Pioglitazone HCl 15 MG TAB PO SCH (09:59)
[2016-11-18] MEDS: Folic Acid 1 MG TAB PO SCH (09:59)
[2016-11-18] MEDS: Lorazepam 1 MG TAB PO SCH ×2 (10:00→20:39)
[2016-11-18] MEDS: Potassium Chloride 10 MEQ TAB PO SCH (10:01)
[2016-11-18] MEDS: Allopurinol 100 MG TAB PO SCH (10:01)
[2016-11-18] MEDS: HumaLOG 300 UNITS/3 ML VIAL SC PRN (11:31)
[2016-11-18] MEDS: cefTRIAXone\\ROCEPHIN 2 GM in Sodium Chloride 0.9% 100 ML IVPB SCH (14:24)
[2016-11-18] MEDS: Atorvastatin Calcium 10 MG TAB PO SCH (20:38)
[2016-11-18] MEDS: Gabapentin 300 MG CAP PO SCH (20:39)
[2016-11-18] MEDS: Donepezil HCl 10 MG TAB PO SCH (20:39)
[2016-11-18] MEDS: Acetaminophen 325 MG TAB PO PRN (20:40)
[2016-11-18] MEDS ORDERED: Melatonin 3 MG TAB PO SCH (21:30)
[2016-11-18] MEDS ORDERED: Mag-Al Plus 1200 MG/1200 MG/120 MG/30 ML UDCUP PO PRN (21:49)
[2016-11-19] MEDS: Levothyroxine Sodium 50 MCG TAB PO SCH (06:15)
[2016-11-19] MEDS: Lorazepam 1 MG TAB PO SCH ×2 (08:43→20:44)
[2016-11-19] MEDS: Metoprolol Tartrate 50 MG TAB PO SCH ×2 (08:44→20:45)
[2016-11-19] MEDS: Pioglitazone HCl 15 MG TAB PO SCH (08:44)
[2016-11-19] MEDS: Potassium Chloride 10 MEQ TAB PO SCH (08:45)
[2016-11-19] MEDS: Folic Acid 1 MG TAB PO SCH (08:45)
[2016-11-19] MEDS: Aspirin 81 mg Enteric Coated Tablet PO SCH (08:45)
[2016-11-19] MEDS: TROSPIUM 20 MG TABLET PO SCH ×2 (08:45→20:45)
[2016-11-19] MEDS: Allopurinol 100 MG TAB PO SCH (08:46)
[2016-11-19] MEDS: cefTRIAXone\\ROCEPHIN 2 GM in Sodium Chloride 0.9% 100 ML IVPB SCH (14:25)
[2016-11-19] MEDS: Donepezil HCl 10 MG TAB PO SCH (20:44)
[2016-11-19] MEDS: Gabapentin 300 MG CAP PO SCH (20:44)
[2016-11-19] MEDS: Atorvastatin Calcium 10 MG TAB PO SCH (20:44)
[2016-11-19] MEDS: Melatonin 3 MG TAB PO SCH (20:45)
[2016-11-20] MEDS: Levothyroxine Sodium 50 MCG TAB PO SCH (05:59)
[2016-11-20] MEDS: Lorazepam 1 MG TAB PO SCH ×2 (08:50→20:51)
[2016-11-20] MEDS: Allopurinol 100 MG TAB PO SCH (08:50)
[2016-11-20] MEDS: Potassium Chloride 10 MEQ TAB PO SCH (08:51)
[2016-11-20] MEDS: TROSPIUM 20 MG TABLET PO SCH ×2 (08:51→20:50)
[2016-11-20] MEDS: Folic Acid 1 MG TAB PO SCH (08:51)
[2016-11-20] MEDS: Pioglitazone HCl 15 MG TAB PO SCH (08:51)
[2016-11-20] MEDS: Aspirin 81 mg Enteric Coated Tablet PO SCH (08:52)
[2016-11-20] MEDS: Metoprolol Tartrate 50 MG TAB PO SCH ×2 (08:52→20:50)
--- NOTE | 2016-11-20 12:32 | PRG ---
DATE OF ADMISSION: 10/28/2016 DATE OF PROGRESS NOTE: 11/19/2016 SUBJECTIVE: Ms. Wynn is a very pleasant 76-year-old white female that was getting weaker and wea ker, had fever and chills and was found to have an E. coli resistant to oral antibiotics. She was a dmitted to the acute care center, started on Rocephin IV 2 grams IV for a total of 10 days. After s everal days, she will switch to the swing bed. This patient states she is doing much better. She is feeling much stronger. She was able walk much farther today. She thinks that she can increase her strength and stamina with more physical therap y and I certainly agree. OBJECTIVE: VITAL SIGNS: Reveal blood pressure this morning was 120/57, pulse 68, respirations 16, O2 sat 98%, temperature 96.3. Weight today was 186 pounds. GENERAL: This is a well-developed, well-nourished, very pleasant, slightly obese white female in no apparent distress at this time. HEENT: Reveals normocephalic, nontraumatic cranium. Pupils are equally round and reactive. Extrao cular movements intact. Nose and throat are slightly dry. NECK: Supple, without masses, nodes or bruits. CHEST: Clear to auscultation. No rales, rhonchi or wheezes are heard. HEART: Reveals a regular rate and rhythm without murmurs, gallops or rubs. ABDOMEN: Soft, nontender, without organomegaly, normal bowel sounds are noted. No rebound or guard ing is noted. : Deferred. EXTREMITIES: Reveal no clubbing, cyanosis or edema. NEUROLOGIC: The patient has no focal deficits. ASSESSMENT: 1. Urinary tract infection with Escherichia coli resistant to oral antibiotics. 2. Hypertension. 3. Diabetes. 4. Diarrhea. 5. Chronic gout. 6. Anemia. 7. Hyperlipidemia. 8. Neuropathy. 9. Insomnia. 10. Generalized weakness. 11. Long-term memory loss. PLAN: 1. Continue Rocephin for a full of 10 days. 2. Continue to follow up the patient's Accu-Cheks before meals and at bedtime. 3. Follow the patient's blood pressure closely. 4. Follow the patient for diarrhea. 5. Continue to monitor the patient for gout. 6. Follow up anemia. 7. Follow up with Dr. Mendoza when she is outpatient for further GI evaluation. 8. Continue DVT and stress ulcer prophylaxis. 9. Continue physical therapy and occupational therapy.
[2016-11-20] MEDS: HumaLOG 300 UNITS/3 ML VIAL SC PRN (13:18)
[2016-11-20] MEDS: Melatonin 3 MG TAB PO SCH (20:49)
[2016-11-20] MEDS: Atorvastatin Calcium 10 MG TAB PO SCH (20:50)
[2016-11-20] MEDS: Gabapentin 300 MG CAP PO SCH (20:50)
[2016-11-20] MEDS: Donepezil HCl 10 MG TAB PO SCH (20:50)
--- NOTE | 2016-11-20 21:22 | PRG ---
DATE OF PROGRESS NOTE: 11/20/2016 HISTORY OF PRESENT ILLNESS: Ms. Wynn is a very pleasant 76-year-old white female that had fever and chills and found to have an E. coli resistant to oral antibiotics, bacteria in her urine. She w as admitted for acute care and started on Rocephin 2 g IV for a total of 10 days. After several day s, she was switched to swing bed to continue IV antibiotics. She has also been doing physical thera py, occupational therapy and actually she is doing much better. She was able on Tuesday to walk all the way around the nurses' station. She states that she would like to stay longer to continue to ge t stronger, so when she goes home, she will be so depended on her wheelchair than her walker. OBJECTIVE: VITAL SIGNS: Revealed blood pressure 142/63, pulse 72-77, respirations 20, O2 saturation 94-99% on room air. T-max is 97.9. LABORATORY DATA: Sugars today reveal a fasting sugar this morning 113, before lunch 172, before sup per 102. PHYSICAL EXAMINATION: GENERAL: This is a well-developed, well-nourished, very pleasant white female, in no apparent distr ess at this time. HEENT: Reveals normocephalic, nontraumatic cranium. Pupils are equally round and reactive. Extrao cular movements intact. Nose and throat are slightly dry. NECK: Supple, without masses, nodes or bruits. CHEST: Clear to auscultation. No rales, rhonchi or wheezes are heard. CARDIOVASCULAR: Reveals a regular rate and rhythm without murmurs, gallops or rubs. ABDOMEN: Soft, nontender, without organomegaly, normal bowel sounds are noted. No rebound or guard ing is noted. GENITOURINARY: Deferred. EXTREMITIES: Revealed no clubbing, cyanosis or edema. NEUROLOGIC: The patient has no focal deficits. ASSESSMENT: 1. Urinary tract infection with Escherichia coli resistant to oral antibiotics, finished Rocephin. 2. Generalized weakness. 3. Hypertension. 4. Diabetes. 5. Diarrhea. 6. Chronic gout. 7. Anemia. 8. Hyperlipidemia. 9. Neuropathy. 10. Insomnia. 11. Generalized weakness. 12. Long-term memory loss. PLAN: 1. Patient has finished her full days of Rocephin. 2. Continue to follow Accu-Cheks in the morning and at bedtime. 3. Continue to follow the patient's blood pressure closely. 4. Follow the patient for diarrhea. 5. Monitor the patient's anemia. 6. Continue physical therapy and occupational therapy. 7. Continue DVT and stress ulcer prophylaxis. 8. Follow up with Dr. Mendoza as outpatient for further GI evaluation.
[2016-11-21] MEDS: Levothyroxine Sodium 50 MCG TAB PO SCH (05:34)
[2016-11-21] MEDS: Allopurinol 100 MG TAB PO SCH (09:28)
[2016-11-21] MEDS: Metoprolol Tartrate 50 MG TAB PO SCH ×2 (09:28→21:27)
[2016-11-21] MEDS: Pioglitazone HCl 15 MG TAB PO SCH (09:29)
[2016-11-21] MEDS: Potassium Chloride 10 MEQ TAB PO SCH (09:29)
[2016-11-21] MEDS: Folic Acid 1 MG TAB PO SCH (09:30)
[2016-11-21] MEDS: Aspirin 81 mg Enteric Coated Tablet PO SCH (09:30)
[2016-11-21] MEDS: TROSPIUM 20 MG TABLET PO SCH ×2 (09:30→21:28)
[2016-11-21] MEDS: Lorazepam 1 MG TAB PO SCH ×2 (09:30→21:27)
[2016-11-21] MEDS: HumaLOG 300 UNITS/3 ML VIAL SC PRN (12:10)
[2016-11-21] MEDS: Donepezil HCl 10 MG TAB PO SCH (21:27)
[2016-11-21] MEDS: Atorvastatin Calcium 10 MG TAB PO SCH (21:27)
[2016-11-21] MEDS: Melatonin 3 MG TAB PO SCH (21:28)
[2016-11-21] MEDS: Gabapentin 300 MG CAP PO SCH (21:28)
--- NOTE | 2016-11-22 01:41 | PRG ---
DATE OF SERVICE: 11/21/2016 DATE OF ADMISSION: 11/15/2016 SUBJECTIVE: Ms. Wynn is a very pleasant 76-year-old white female had fever and chills, found to have E. coli resistant to oral antibiotics and also urinary tract infection. She was started at [facility] in acute care, started Rocephin 2 grams IV, which did very well. She finished her 10th day coup le of days ago in the swing bed. She is doing much better, but she has still extreme weakness. She was able to walk multiple times, but had rest around the nurses' station. She still very weak and would get through physical therapy and occupational therapy tomorrow and see if we can continue gett ing her a little more therapy, so she gets stronger before she goes home, so she can maybe get out o f a wheelchair. OBJECTIVE: VITAL SIGNS: Reveal blood pressure 142/71, pulse 71 to 76, respirations 18-20, O2 saturation 95%-1 00% on room air, temperature max is 97.8, weight is 186 pounds. GENERAL: This is a well-developed, well-nourished, very pleasant, obese white female in no apparent distress at this time. HEENT: Reveals normocephalic, nontraumatic cranium. Pupils equal, round, and reactive. Extraocula r movements intact. Nose and throat are slightly dry. NECK: Supple without masses, nodes, or bruits. CHEST: Clear to auscultation. No rales, rhonchi, or wheezes are heard. CARDIOVASCULAR: Reveals a regular rate and rhythm without murmurs, gallops, or rubs. ABDOMEN: Obese, soft, nontender without organomegaly. Normal bowel sounds are noted. No rebound o r guarding is noted. : Deferred. EXTREMITIES: Reveal no clubbing, cyanosis. Trace edema. NEUROLOGIC: Patient has no focal deficits. She is still in a wheelchair, but doing much better. LABORATORY DATA: Reveals her sugars fasting was 120, before lunch 194, before supper 143, before be dtime 121. IMPRESSION: 1. Urinary tract infection with Escherichia coli resistant to oral antibiotics, finished her Roceph in. 2. Generalized weakness. 3. Hypertension. 4. Diabetes under fairly good control. 5. Diarrhea, much improved. 6. Chronic gout. 7. Anemia. 8. Hyperlipidemia. 9. Neuropathy. 10. Insomnia. 11. Generalized weakness. 12. Long-term memory loss. PLAN: 1. Patient will finish her full days of Rocephin. 2. Patient will restart with her physical therapy and occupational therapy tomorrow. 3. Continue to follow Accu-Cheks a.c. and at bedtime. 4. Follow the patient's blood pressure closely. 5. Follow the patient's diarrhea. 6. Monitor the patient for anemia. 7. Continue physical therapy and occupational therapy. 8. Continue DVT and stress ulcer prophylaxis. 9. Continue follow with Dr. Mendoza outpatient for further GI evaluation.
[2016-11-22] MEDS: Levothyroxine Sodium 50 MCG TAB PO SCH (05:56)
[2016-11-22] MEDS: Metoprolol Tartrate 50 MG TAB PO SCH (09:00)
[2016-11-22] MEDS: TROSPIUM 20 MG TABLET PO SCH ×2 (09:20→21:36)
[2016-11-22] MEDS: Lorazepam 1 MG TAB PO SCH ×2 (09:20→21:36)
[2016-11-22] MEDS: Pioglitazone HCl 15 MG TAB PO SCH (09:20)
[2016-11-22] MEDS: Potassium Chloride 10 MEQ TAB PO SCH (09:21)
[2016-11-22] MEDS: Aspirin 81 mg Enteric Coated Tablet PO SCH (09:22)
[2016-11-22] MEDS: Folic Acid 1 MG TAB PO SCH (09:22)
[2016-11-22] MEDS: Allopurinol 100 MG TAB PO SCH (09:22)
[2016-11-22] MEDS ORDERED: Metoprolol Tartrate 25 MG TAB PO SCH (10:45)
[2016-11-22] MEDS: Melatonin 3 MG TAB PO SCH (21:34)
[2016-11-22] MEDS: Metoprolol Tartrate 25 MG TAB PO SCH (21:35)
[2016-11-22] MEDS: Donepezil HCl 10 MG TAB PO SCH (21:35)
[2016-11-22] MEDS: Atorvastatin Calcium 10 MG TAB PO SCH (21:35)
[2016-11-22] MEDS: Gabapentin 300 MG CAP PO SCH (21:36)
--- NOTE | 2016-11-22 23:06 | PRG ---
DATE OF SERVICE: 11/22/2016 DATE OF ADMISSION: 11/15/2016 HISTORY OF PRESENT ILLNESS: Ms. Wynn is a very pleasant 76-year-old white female who was found t o have E. coli resistant bacteria in her urine. She was admitted to the hospital and started on Nathen ephin 2 grams IV daily. She was transferred to swing bed to finish out her 10 days. While here, dimitri simon got physical therapy and actually has improved significantly. It is felt that she would continue to improve with some more physical therapy, so we have encouraged her to stay for a little bit longe r. PHYSICAL EXAMINATION: VITAL SIGNS: Reveal blood pressure 142/68, pulse 71-76, respirations 17-18, O2 sat 96% to 100% on r oom air, temperature max 97.2. Weight 186 pounds. GENERAL: This is a well-developed, well-nourished, slightly obese white female in no apparent distr ess at this time. HEENT: Reveals normocephalic, nontraumatic cranium. Pupils are equally round and reactive. Extrao cular movements intact. Nose and throat are slightly dry. NECK: Supple, without masses, nodes or bruits. CHEST: Clear to auscultation. No rales, rhonchi or wheezes are heard. CARDIOVASCULAR: Heart reveals a regular rate and rhythm without murmurs, gallops or rubs. ABDOMEN: Obese, soft, nontender, without organomegaly. Normal bowel sounds are heard. No rebound or guarding is noted. Bowel sounds are noted in all 4 quadrants. : Deferred. EXTREMITIES: Reveal no clubbing, cyanosis with continued trace edema. NEUROLOGIC: Patient has no focal deficits. She continues to stay in the wheelchair during the day, but is able to walk and she did walk twice with therapy today. IMPRESSION: 1. Urinary tract infection with Escherichia coli was resolved. 2. Generalized weakness. 3. Hypertension. 4. Diabetes under fairly good control. 5. Diarrhea. 6. Anemia. 7. Hyperlipidemia. 8. Neuropathy for which we will increase her gabapentin to 100 mg in the morning, 600 at night. 9. Hyperlipidemia. 10. Insomnia. 11. Generalized weakness. 12. prison memory loss. PLAN: 1. Continue physical therapy and occupational therapy. 2. We will continue to follow Accu-Cheks before meals and at bedtime. 3. Follow blood pressure closely. 4. Add gabapentin 100 mg every morning to her 600 mg at night. 5. Monitor the patient for anemia. 6. Continue PT and OT. Continue DVT and stress ulcer prophylaxis. 7. The patient will be followed by Dr. Mendoza outpatient for continued GI problems.
[2016-11-23] MEDS: Levothyroxine Sodium 50 MCG TAB PO SCH (06:26)
[2016-11-23] MEDS: Metoprolol Tartrate 25 MG TAB PO SCH (08:40)
[2016-11-23] MEDS: Allopurinol 100 MG TAB PO SCH (08:40)
[2016-11-23] MEDS: Potassium Chloride 10 MEQ TAB PO SCH (08:41)
[2016-11-23] MEDS: Pioglitazone HCl 15 MG TAB PO SCH (08:41)
[2016-11-23] MEDS: Lorazepam 1 MG TAB PO SCH ×2 (08:41→21:06)
[2016-11-23] MEDS: Gabapentin 100 MG CAP PO SCH (08:41)
[2016-11-23] MEDS: Folic Acid 1 MG TAB PO SCH (08:41)
[2016-11-23] MEDS: TROSPIUM 20 MG TABLET PO SCH ×2 (08:41→21:05)
[2016-11-23] MEDS: Aspirin 81 mg Enteric Coated Tablet PO SCH (08:42)
[2016-11-23] MEDS: HumaLOG 300 UNITS/3 ML VIAL SC PRN (11:54)
[2016-11-23] MEDS: Gabapentin 300 MG CAP PO SCH (21:05)
[2016-11-23] MEDS: Donepezil HCl 10 MG TAB PO SCH (21:06)
[2016-11-23] MEDS: Atorvastatin Calcium 10 MG TAB PO SCH (21:06)
[2016-11-23] MEDS: Melatonin 3 MG TAB PO SCH (21:06)
[2016-11-23] MEDS: Metoprolol Tartrate 50 MG TAB PO SCH (21:06)
[2016-11-24] MEDS: Levothyroxine Sodium 50 MCG TAB PO SCH (06:19)
--- NOTE | 2016-11-24 06:29 | PRG ---
DATE OF ADMISSION: 11/15/2016 DATE OF SERVICE: 11/23/2016 HISTORY OF PRESENT ILLNESS: Ms. Wynn is a very pleasant 76-year-old white female that had urinar y tract infection due to Escherichia coli. The Escherichia coli was resistant to all oral antibioti cs and she was started on Rocephin 2 grams IV daily. She received several days of that in the acute care and was transferred to the swing bed. In the swing bed, she has continued to finish her antib iotics at a full 10 days. She also has gotten physical therapy and occupational therapy and has act ually gotten much stronger than what could be expected. She continues to do well and is walking. W e just need to work on getting up and down a little bit better. I discussed with PT, how much better she is doing, they recommended several more days of therapy to get her to her maximum. PHYSICAL EXAMINATION: VITAL SIGNS: Reveal blood pressure 112/59, pulse 50 to 69, respirations 16 to 19, O2 sat 93% to 100 %, T-max 97.5. Weight 186 pounds. GENERAL: This is a well-developed, well-nourished, somewhat obese white female in no apparent distr ess at this time. HEENT: Reveals normocephalic, nontraumatic cranium. Pupils are equally round and reactive. Extrao cular movements intact. Nose and throat are slightly dry. NECK: Supple, without masses, nodes or bruits. CHEST: Clear to auscultation. No rales, rhonchi or wheezes are heard. HEART: Reveals a regular rate and rhythm without murmurs, gallops or rubs. ABDOMEN: Soft, nontender, without organomegaly, normal bowel sounds are noted. No rebound or guard ing is noted. : Deferred. EXTREMITIES: Reveal no clubbing, cyanosis. Trace edema continues. NEUROLOGIC: The patient has no significant focal deficits. The patient has been up walking much mo re than usual. IMPRESSION: 1. Urinary tract infection with Escherichia coli, resolved. 2. Generalized weakness. 3. Hypertension. 4. Diabetes under fairly good control. 5. Diarrhea. 6. Anemia. 7. Hyperlipidemia. 8. Insomnia. 9. Neuropathy, which we increased her gabapentin to 600 mg in the evening and 100 mg in the morning . 10. Generalized weakness. 11. Long-term memory loss. PLAN: 1. Continue physical therapy and occupational therapy. 2. Continue to monitor Accu-Cheks a.c. and at bedtime. 3. Monitor blood pressures. 4. Gabapentin 100 mg every morning and 600 mg at bedtime. 5. Continue PT and OT. 6. Continue DVT and stress ulcer prophylaxis. 7. Dr. Mendoza's office called about her following up as an outpatient, which we will do as soon as she gets out of the hospital. 8. Monitor the patient for anemia.
[2016-11-24] MEDS: Gabapentin 100 MG CAP PO SCH (10:19)
[2016-11-24] MEDS: Allopurinol 100 MG TAB PO SCH (10:19)
[2016-11-24] MEDS: Lorazepam 1 MG TAB PO SCH ×2 (10:19→21:10)
[2016-11-24] MEDS: Aspirin 81 mg Enteric Coated Tablet PO SCH (10:20)
[2016-11-24] MEDS: Metoprolol Tartrate 50 MG TAB PO SCH ×2 (10:20→21:11)
[2016-11-24] MEDS: Pioglitazone HCl 15 MG TAB PO SCH (10:20)
[2016-11-24] MEDS: TROSPIUM 20 MG TABLET PO SCH ×2 (10:20→21:10)
[2016-11-24] MEDS: Potassium Chloride 10 MEQ TAB PO SCH (10:21)
[2016-11-24] MEDS: Folic Acid 1 MG TAB PO SCH (10:21)
--- NOTE | 2016-11-24 14:30 | PRG ---
DATE OF SERVICE: 11/24/2016 HISTORY OF PRESENT ILLNESS: Ms. Wynn is a very pleasant 76-year-old white female who was admitte d to [facility] acute care for E. coli resistant to oral antibiotics. She was start ed on Rocephin 2 grams IV daily. After several days, she was transferred to swing bed to continue h er IV antibiotics. She is now finished her antibiotics and is still in physical therapy because she is improving so much. PHYSICAL EXAMINATION: VITAL SIGNS: Today reveal blood pressure is 145/63, pulse 50-78, respirations 18, O2 sat 93%-97%, t emperature max 98.6. GENERAL: This is a well-developed, well-nourished, very pleasant white female in no apparent distre ss at this time. HEENT: Reveals normocephalic, nontraumatic cranium. Pupils are equal, round, and reactive. Extrao cular movements intact. Nose and throat are slightly dry, but clear. NECK: Supple without masses, nodes or bruits. CHEST: Clear to auscultation. No rales, rhonchi or wheezes, or cough is heard. HEART: Reveals a regular rate and rhythm without murmurs, gallops or rubs. ABDOMEN: Soft, nontender, without organomegaly, normal bowel sounds are noted. No rebound or guard ing is noted. : Exam is deferred. EXTREMITIES: Reveal no clubbing, cyanosis, or edema. NEUROLOGIC: Patient has no focal deficits, just generalized weakness. She is walking much better. IMPRESSION: 1. Urinary tract infection with Escherichia coli, resolved. 2. Generalized weakness. 3. Hypertension. 4. Diabetes under good control. 5. Anemia. 6. Hyperlipidemia. 7. Insomnia. 8. Neuropathy, add gabapentin 600 mg in the evening and 100 mg in the morning. 9. Generalized weakness. 10. Long-term memory loss. PLAN: 1. Continue to follow physical therapy and occupational role in how to improve her strength and sta trista. 2. Continue to monitor Accu-Cheks a.c. and at bedtime. 3. Monitor blood pressure closely. 4. Gabapentin 600 mg at night and 100 mg every morning. 5. Continue PT and OT. 6. Deep venous thrombosis and stress ulcer prophylaxis. 7. Follow up with Dr. Mendoza's office as outpatient for followup for increased evaluation.
[2016-11-24] MEDS: Gabapentin 300 MG CAP PO SCH (21:09)
[2016-11-24] MEDS: Donepezil HCl 10 MG TAB PO SCH (21:11)
[2016-11-24] MEDS: Atorvastatin Calcium 10 MG TAB PO SCH (21:11)
[2016-11-24] MEDS: Melatonin 3 MG TAB PO SCH (21:11)
[2016-11-25] MEDS: Levothyroxine Sodium 50 MCG TAB PO SCH (06:31)
[2016-11-25] MEDS: Aspirin 81 mg Enteric Coated Tablet PO SCH (08:59)
[2016-11-25] MEDS: Allopurinol 100 MG TAB PO SCH (08:59)
[2016-11-25] MEDS: Gabapentin 100 MG CAP PO SCH (09:00)
[2016-11-25] MEDS: Lorazepam 1 MG TAB PO SCH ×2 (09:00→21:38)
[2016-11-25] MEDS: Folic Acid 1 MG TAB PO SCH (09:00)
[2016-11-25] MEDS: TROSPIUM 20 MG TABLET PO SCH ×2 (09:01→21:37)
[2016-11-25] MEDS: Pioglitazone HCl 15 MG TAB PO SCH (09:01)
[2016-11-25] MEDS: Potassium Chloride 10 MEQ TAB PO SCH (09:01)
[2016-11-25] MEDS: Metoprolol Tartrate 50 MG TAB PO SCH ×2 (09:01→21:36)
[2016-11-25] MEDS: HumaLOG 300 UNITS/3 ML VIAL SC PRN (12:04)
[2016-11-25] MEDS: Donepezil HCl 10 MG TAB PO SCH (21:36)
[2016-11-25] MEDS: Gabapentin 300 MG CAP PO SCH (21:37)
[2016-11-25] MEDS: Atorvastatin Calcium 10 MG TAB PO SCH (21:37)
[2016-11-25] MEDS: Melatonin 3 MG TAB PO SCH (21:38)
--- NOTE | 2016-11-26 00:22 | PRG ---
DATE OF ADMISSION: 11/15/2016 DATE OF PROGRESS NOTE: 11/25/2016 HISTORY OF PRESENT ILLNESS: Ms. Wynn is a very pleasant 76-year-old white female, who admitted [facility] because of a resistant E. coli urinary tract infection that she had. S he was sensitive only to IV drugs. She was started on Rocephin 2 grams IV daily. She was transferr ed to swing bed for continued IV antibiotics and physical therapy and occupational therapy. The patient has actually doing very well. She has finished her antibiotics and she is walking much better. Physical therapy said they felt that she gets a little longer her would like to cece e her home on Tuesday. OBJECTIVE DATA: VITAL SIGNS: Reveals blood pressure 153/80, pulse 78-74, respirations 18-19, and O2 sat 93%-99% on room air. T-max is 98.1. LABORATORY DATA: Laboratories today reveal fasting blood sugar this morning was 119, before lunch 1 68, before supper 119. PHYSICAL EXAMINATION: GENERAL: This is a well-developed, well-nourished, slightly obese white female, in no apparent dist ress at this time. HEENT: Reveals normocephalic, nontraumatic cranium. Pupils equally round and reactive. Extraocula r movements intact. Nose and throat are slightly dry. NECK: Supple, without masses, nodes or bruits. LUNGS: Chest is clear to auscultation. No rales, no rhonchi, no wheezes are heard. No cough is no rock. HEART: Reveals a regular rate and rhythm without murmurs, gallops or rubs. ABDOMEN: Soft, nontender, without organomegaly, normal bowel sounds are noted. No rebound or guard ing is noted. : Deferred. EXTREMITIES: Reveal no clubbing, cyanosis or edema, generalized weakness, which is much improved. NEUROLOGIC: The patient has no focal deficits. The patient is certainly walking much better. The patient is oriented to person, place, and time. IMPRESSION: 1. Urinary tract infection with Escherichia coli, resolved. 2. Generalized weakness. 3. Hypertension. 4. Diabetes, under fairly good control. 5. Anemia. 6. Hyperlipidemia. 7. Insomnia. 8. Neuropathy, for which the patient takes gabapentin 600 in the evening, and 1 in the morning seem s to be working better. 9. Generalized weakness. 10. Long-term memory loss. PLAN: 1. Continue physical therapy and occupational therapy. 2. Continue to monitor Accu-Cheks a.c. and at bedtime. 3. Monitor blood pressure closely. 4. Gabapentin 600 mg at night and 100 mg every morning. 5. Continue physical therapy and occupational therapy. 6. Continue deep venous thrombosis prophylaxis. 7. Continue stress ulcer prophylaxis. 8. Follow up with Dr. Mendoza as outpatient.
[2016-11-26] MEDS: Levothyroxine Sodium 50 MCG TAB PO SCH (06:19)
[2016-11-26] MEDS: Allopurinol 100 MG TAB PO SCH (08:24)
[2016-11-26] MEDS: Aspirin 81 mg Enteric Coated Tablet PO SCH (08:24)
[2016-11-26] MEDS: TROSPIUM 20 MG TABLET PO SCH ×2 (08:24→22:02)
[2016-11-26] MEDS: Potassium Chloride 10 MEQ TAB PO SCH (08:25)
[2016-11-26] MEDS: Metoprolol Tartrate 50 MG TAB PO SCH ×2 (08:25→22:02)
[2016-11-26] MEDS: Pioglitazone HCl 15 MG TAB PO SCH (08:25)
[2016-11-26] MEDS: Gabapentin 100 MG CAP PO SCH (08:25)
[2016-11-26] MEDS: Folic Acid 1 MG TAB PO SCH (08:25)
[2016-11-26] MEDS: Lorazepam 1 MG TAB PO SCH ×2 (08:26→22:02)
[2016-11-26] MEDS: HumaLOG 300 UNITS/3 ML VIAL SC PRN (11:53)
[2016-11-26] MEDS: Melatonin 3 MG TAB PO SCH (22:00)
[2016-11-26] MEDS: Donepezil HCl 10 MG TAB PO SCH (22:00)
[2016-11-26] MEDS: Gabapentin 300 MG CAP PO SCH (22:01)
[2016-11-26] MEDS: Atorvastatin Calcium 10 MG TAB PO SCH (22:02)
[2016-11-27] MEDS: Levothyroxine Sodium 50 MCG TAB PO SCH (05:42)
[2016-11-27 07:10] VITALS: BP 133/63; TEMP 96.8
[2016-11-27] MEDS: Lorazepam 1 MG TAB PO SCH (08:41)
[2016-11-27] MEDS: Pioglitazone HCl 15 MG TAB PO SCH (08:42)
[2016-11-27] MEDS: TROSPIUM 20 MG TABLET PO SCH (08:42)
[2016-11-27] MEDS: Metoprolol Tartrate 50 MG TAB PO SCH (08:42)
[2016-11-27] MEDS: Potassium Chloride 10 MEQ TAB PO SCH (08:42)
[2016-11-27] MEDS: Gabapentin 100 MG CAP PO SCH (08:42)
[2016-11-27] MEDS: Aspirin 81 mg Enteric Coated Tablet PO SCH (08:43)
[2016-11-27] MEDS: Folic Acid 1 MG TAB PO SCH (08:43)
[2016-11-27] MEDS: Allopurinol 100 MG TAB PO SCH (08:43)
--- NOTE | 2016-11-27 12:22 | DIS ---
DATE OF ADMISSION: 11/15/2016 DATE OF DISCHARGE: 11/27/2016 PRINCIPAL DIAGNOSIS: Urinary tract infection with resistant Escherichia coli requiring intravenous antibiotics. SECONDARY DIAGNOSES: 1. Hypertension. 2. Diabetes mellitus type 2. 3. Dyslipidemia. 4. Peripheral neuropathy. 5. Insomnia. 6. Anemia of chronic disease. 7. predatory animal exterminator memory loss. 8. Improved deconditioning. COMPLICATIONS: None. ADVERSE REACTIONS: None. PROCEDURES: None. CONSULTATIONS: Physical therapy. HOSPITAL COURSE: The patient was admitted by Dr. Samuel De Luna with resistant E. coli UTI requiring IV antibiotics. She was on Rocephin and was continued on it and Physical Therapy was consulted due to deconditioning. She responded well with therapy and antibiotics. Her antibiotics have been dis continued. She apparently has been cleared to be discharged by Therapy and she is going home today. She denies any concerns or questions. She states that she does not need any medications. She sta iliana that she has all the DME that she needs home, discussed with nursing and they said that there is no needs to be addressed at present other than the discharge. PHYSICAL EXAMINATION: VITAL SIGNS: On the day of discharge, she is afebrile. Heart rate is 76, respirations 18, oxygen s aturation 97%, blood pressure is 133/63. CARDIOVASCULAR SYSTEM: S1 and S2 plus. RESPIRATORY SYSTEM: Normal vesicular breath sounds. ABDOMEN: Soft, nontender, bowel sounds heard in all quadrants. EXTREMITIES: Without cyanosis, clubbing. CENTRAL NERVOUS SYSTEM: Grossly nonfocal. LABORATORY DATA: Blood sugars are 170, 113, 126, and 132. DISCHARGE MEDICATIONS: 1. Allopurinol 100 mg daily, 2. Amlodipine 10 mg daily. 3. Ecotrin 81 mg daily. 4. Lipitor 10 mg daily. 5. Aricept 10 mg daily. 6. Cymbalta 60 mg daily. 7. Gabapentin 600 mg at night and 100 mg in the morning. 8. Levoxyl 50 mcg daily. 9. Ativan 0.5 mg b.i.d. 10. Lopressor 100 mg b.i.d. 11. Protonix 40 mg daily. 12. Actos 30 mg daily. 13. Potassium 10 mEq daily. 14. Trospium 20 mg b.i.d. DIET: She is to follow an 1800-calorie heart healthy ADA diet. FOLLOWUP: She is to follow with her primary care physician in 3-5 days. Activity as tolerated. She is to call us with any questions or concerns. Total time spent on this discharge is 35 minutes.
== END 2016-11-27 13:12 | disposition home or self-care (01) | DRG 690 ==
LOC: NAV ACUTE 10:33
PROVIDERS: ADMIT Family Medicine; ATTEND Family Medicine
DX: N39.0 Urinary tract infection, site not specified (principal); E11.42 Type 2 diabetes mellitus with diabetic polyneuropathy; F03.90 Unspecified dementia, unspecified severity, without behavioral disturbance, psychotic disturbance, mood disturbance, and anxiety; B96.20 Unspecified Escherichia coli [E. coli] as the cause of diseases classified elsewhere; Z16.24 Resistance to multiple antibiotics; I10 Essential (primary) hypertension; E78.5 Hyperlipidemia, unspecified; D63.8 Anemia in other chronic diseases classified elsewhere; G47.00 Insomnia, unspecified; F32.9 Major depressive disorder, single episode, unspecified; K21.9 Gastro-esophageal reflux disease without esophagitis; M54.10 Radiculopathy, site unspecified; Z87.891 Personal history of nicotine dependence; M1A.9XX0 Chronic gout, unspecified, without tophus (tophi); R19.7 Diarrhea, unspecified
CPT/HCPCS: 36415; 36416; 80053; 85025; A4216; G8978-GP-CJ; G8979-GP-CI; J0696; J7050; Q0162

== ENCOUNTER 2017-04-01 12:28 | Inpatient (IN) | payer MEDICARE ==
[2017-04-01] MEDS ORDERED: HYDROcodone/Acetaminophen 10/325 mg Tablet PO PRN (13:17)
[2017-04-01 13:32] VITALS: BMI 29.3
[2017-04-01] MEDS: Melatonin 3 MG TAB PO SCH (20:20)
[2017-04-01] MEDS: HYDROcodone/Acetaminophen 10/325 mg Tablet PO PRN (20:21)
[2017-04-01] MEDS: Simvastatin 40 MG TAB PO SCH (20:22)
[2017-04-01] MEDS: Metoprolol Tartrate 50 MG TAB PO SCH (20:23)
[2017-04-01] MEDS: Gabapentin 300 MG CAP PO SCH (20:23)
[2017-04-01] MEDS: Donepezil HCl 10 MG TAB PO SCH (20:23)
--- NOTE | 2017-04-01 23:40 | HP ---
DATE OF ADMISSION: 04/01/2017 DATE OF HISTORY AND PHYSICAL: 04/01/2017 HISTORY OF PRESENT ILLNESS: Ms. Lenny Wynn is a very pleasant 77-year-old white female who was admitted to the hospital by Dr. Joshi for left colon mass. She actually was taken to the surgical suite and had no mass, but had multiple fibrosis areas on her left colon and ended up with a left co lectomy and open end colostomy done by Dr. Joshi. The patient has actually done very well on GI soft diet for now. The patient will continue colostomy teaching while she is here in physical therapy and occupational t herapy. PAST MEDICAL HISTORY: 1. Left radiculopathy followed by Dr. Izquierdo. 2. Right hand trauma. 3. Depression. 4. Diabetes type 2. 5. Hypertension. 6. Gastroesophageal reflux disease. 7. Severe degenerative arthritis of the left hip. 8. Hyperlipidemia. 9. Anemia. 10. Diabetic neuropathy. 11. 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 12. Early dementia. PAST SURGICAL HISTORY: 1. Most recently left colectomy with open end colostomy secondary to complete obstruction of the lef t colon. 2. Cholecystectomy in 1964. 3. Hysterectomy in 1979. 4. L2 through L5 laminectomy done by Dr. Maldonado in 1997. 5. Right hip arthroplasty done by Dr. Mayfield in 2003. 6. Colostomy EGD in 12/2016. 7. Left toe amputation done by Dr. Rajput in 2011. 8. Right cataract surgery by Dr. Hartman in 2012. 9. Left cataract surgery by Dr. Hartman in 12/2012. 10. Right foot surgery by Dr. Ramsay in 07/2015. FAMILY HISTORY: Reveals patient's father at the age of 62 of lung cancer. Patient's mother d at age at age of 60 of kidney cancer. Patient had 2 brothers that both of NH. The patient hightower s one sister of NH and cancer. FAMILY HISTORY: Positive for heart disease and cancer. SOCIAL HISTORY: Patient stopped smoking and she does not drink. She lives in a single story house w ith her here in [place]. They have a laundromat here in [place]. ALLERGIES: Patient is allergic to, 1. LORTAB 2. LIPITOR 3. PHENERGAN. 4. ALEVE 5. ADHESIVE TAPE. HOME MEDICATIONS: Presently, the patient is on the following medications which include, 1. [place] 10 p.r.n. severe pain. 2. Norvasc 10 mg daily. 3. Aricept 10 mg at bedtime. 4. Cymbalta 60 mg each morning. 5. Neurontin 300 mg at bedtime. 6. Levothyroxine 50 each morning. 7. Melatonin 9 mg at bedtime. 8. Lopressor 100 mg b.i.d. 9. Zofran 4 mg q.6 h. p.r.n. 10. Protonix 40 daily. 11. Actos 30 mg daily. 12. Zocor 20 mg daily. 13. Trospium chloride 20 mg every morning. REVIEW OF SYSTEMS: Reveals the patient states she feels currently tired from being transferred by pr ivate car, but she denies any fever, night sweats, or chills. She states she is getting much stronge r. The patient denies any vision changes. Patient denies any change in her hearing. Denies any cough, cold, congestion or wheezing. Patient denies any chest pain, edema, rapid slower irregular heartbeat. The patient denies any nausea, vomiting, diarrhea, constipation, bloody black tarry stools. The bg ent denies nocturia, urgency, frequency, does have leakage. Patient denies hematuria or dysuria. Musculoskeletal alba, she has no significant arthritic pain. The patient denies any rashes or skin c ancers. She does not complain of any rashes around her colostomy. PHYSICAL EXAMINATION: GENERAL: Reveals a well-developed, well-nourished, slightly obese white female in no apparent distre ss at this time. HEENT: Reveals normocephalic, nontraumatic cranium. Pupils are equally round and reactive. Extraoc ular movements intact. Nose and throat are slightly dry. NECK: Supple, without masses, nodes or bruits. CHEST: Clear to auscultation. No rales, rhonchi, wheezes or cough is heard. HEART: Reveals a regular rate and rhythm without murmurs, gallops or rubs. ABDOMEN: Soft, nontender, without organomegaly, normal bowel sounds are noted. No rebound or guardi ng is noted. GENITOURINARY: Deferred. EXTREMITIES: Reveal no clubbing, cyanosis or edema. NEUROLOGIC: The patient has no focal deficits. Abdomen reveals midline abdominal incision, which is clean and not draining and closed with Super Glu e. The patient also has a colostomy which is performing well. ASSESSMENT: 1. Status post left colectomy with an open end colostomy. 2. Generalized weakness. 3. Hypertension. 4. Diabetes. 5. Chronic gout. 6. Anemia. 7. Hyperlipidemia. 8. Diabetic neuropathy. 9. Insomnia. 10. Generalized weakness. 11. Long-term memory loss. PLAN: 1. The patient will continue with physical therapy and occupational therapy. 2. We will watch the patient's sugars closely. 3. We will get the patient up for physical therapy and occupational therapy. 4. DVT prophylaxis. 5. Stress ulcer prophylaxis. 6. Decubitus precautions. 7. Physical therapy and occupational therapy.
[2017-04-02 05:51] LABS: ALT (SGPT) 8 U/L (8-55); AST (SGOT) 15 U/L (5-34); Alkaline Phosphatase 74 U/L (40-150); Anion Gap 10 mmol/L (10-20); BUN (Urea Nitrogen) 11 mg/dL (9.8-20.1); Bilirubin, Total 0.3 mg/dL (0.2-1.2); Calc. Creatinine Clearance 53 mL/min (70-130); Calcium 8.1 mg/dL (7.8-10.44); Carbon Dioxide 24 mmol/L (23-31); Chloride 103 mmol/L (98-107); Estimated GFR-MDRD 46; Globulin 2.8 g/dL (2.4-3.5); Glucose 127 mg/dL (83-110); Protein, Total 4.8 g/dL (6.0-8.3); Sodium 135 mmol/L (136-145)
[2017-04-02 05:56] LABS: Potassium 2.4 mmol/L (3.5-5.1)
[2017-04-02 06:23] LABS: Potassium 2.5 mmol/L (3.5-5.1)
[2017-04-02] MEDS: Potassium Chloride 20 MEQ TAB PO SCH ×2 (06:48→08:54)
[2017-04-02] MEDS: Levothyroxine Sodium 50 MCG TAB PO SCH (06:49)
[2017-04-02] MEDS: Metoprolol Tartrate 50 MG TAB PO SCH ×2 (08:55→21:28)
[2017-04-02] MEDS: TROSPIUM 20 MG TABLET PO SCH (08:55)
[2017-04-02] MEDS: Pioglitazone HCl 15 MG TAB PO SCH (08:55)
[2017-04-02] MEDS: Amlodipine 10 MG TAB PO SCH (08:55)
[2017-04-02] MEDS: Ondansetron ODT 4 MG TAB PO PRN ×2 (14:41→19:41)
[2017-04-02] MEDS: HYDROcodone/Acetaminophen 10/325 mg Tablet PO PRN ×2 (14:42→21:27)
--- NOTE | 2017-04-02 16:48 | PRG ---
DATE OF SERVICE: 04/02/2017 SUBJECTIVE: Ms. Wynn is complaining of nausea. She was also noticed to have low potassium and hightower d 2 doses of potassium 40 mEq and I am not sure if that is contributing to the nausea. She denies an y fever or chills. Denies any diarrhea. OBJECTIVE: VITAL SIGNS: She is afebrile, heart rate is 75, respirations are 18, oxygen saturation is 93%, blood pressure is 125/61. CARDIOVASCULAR: S1, S2 plus. RESPIRATORY: Normal vesicular breath sounds. ABDOMEN: Soft, nontender, bowel sounds heard in all quadrants. Colostomy in the left lower quadrant . EXTREMITIES: Without cyanosis or clubbing. Peripheral pulses are palpable. CENTRAL NERVOUS SYSTEM: Generalized weakness. LABORATORY VALUES: Her potassium was 2.4 this morning, recheck was 2.5. She is not on any diuretics , BUN and creatinine is 11 and 1.13. Blood sugars are 132, 138, 161 and 129. IMPRESSION: 1. Status post left colectomy with colostomy secondary to complete obstruction of the left colon for left colon mass. 2. Diabetes mellitus type 2. 3. Hypertension. 4. Gastroesophageal reflux disease. 5. Dyslipidemia. 6. Hypokalemia. PLAN: 1. Replace potassium. 2. Recheck potassium level. 3. Add Glucerna. 4. Continue Zofran and add Phenergan if Zofran is not helping. 5. Clear liquid diet. 6. Continue current medications. 7. Recheck laboratory values in the morning. 8. No family at the bedside. 9. Continue Accu-Cheks. 10. PlexiPulses. 11. Physical therapy evaluation.
[2017-04-02] MEDS: Gabapentin 300 MG CAP PO SCH (21:26)
[2017-04-02] MEDS: Simvastatin 40 MG TAB PO SCH (21:26)
[2017-04-02] MEDS: Donepezil HCl 10 MG TAB PO SCH (21:26)
[2017-04-02] MEDS: Melatonin 3 MG TAB PO SCH (21:26)
[2017-04-02] MEDS: Metoclopramide HCl 10 MG/10 ML UDCUP PO SCH (21:28)
[2017-04-03 05:41] LABS: Anion Gap 10 mmol/L (10-20); BUN (Urea Nitrogen) 11 mg/dL (9.8-20.1); Calc. Creatinine Clearance 58 mL/min (70-130); Calcium 7.9 mg/dL (7.8-10.44); Carbon Dioxide 23 mmol/L (23-31); Chloride 104 mmol/L (98-107); Estimated GFR-MDRD 52; Glucose 137 mg/dL (83-110); Potassium 3.3 mmol/L (3.5-5.1); Sodium 134 mmol/L (136-145)
[2017-04-03 05:50] LABS: Band 14 % (5-11); Eosinophils 3 % (0-10); Hemoglobin 7.4 g/dL (12.0-16.0); Hypochromia MODERATE=16-30 cells (100X) (0-5/hpf); Lymphocytes 28 % (21-51); MDiff Complete? YES; Mean Corpuscular HGB CONC 30.6 g/dL (32.0-36.0); Mean Corpuscular Hemoglobin 23.5 pg (27.0-31.0); Mean Corpuscular Volume 76.6 fl (81.0-99.0); Mean Platelet Volume 6.1 fL (7.4-10.4); Metamyelocyte 1 % (0-0); Microcytosis SLIGHT = 6-15 cells (100X) (0-5/hpf); Monocytes 4 % (0-10); Neutrophil 50 % (42-75); PLT Morphology Comment Appears Adequate; Platelet Count 159 thou/uL (130-400); RBC Distribution Width 15.5 % (11.5-14.5); Red Blood Cell (RBC) Count 3.14 mill/uL (4.20-5.40)
[2017-04-03] MEDS: Levothyroxine Sodium 50 MCG TAB PO SCH (06:20)
[2017-04-03] MEDS: Pioglitazone HCl 15 MG TAB PO SCH (08:54)
[2017-04-03] MEDS: TROSPIUM 20 MG TABLET PO SCH (08:54)
[2017-04-03] MEDS: Metoprolol Tartrate 50 MG TAB PO SCH ×2 (08:54→21:38)
[2017-04-03] MEDS: Metoclopramide HCl 10 MG/10 ML UDCUP PO SCH ×2 (08:55→21:37)
[2017-04-03] MEDS: Amlodipine 10 MG TAB PO SCH (08:55)
--- NOTE | 2017-04-03 14:31 | PRG ---
DATE OF SERVICE: 04/03/2017 SUBJECTIVE: Ms. Wynn is doing better. No further nausea. She tolerated breakfast. She sat upri ght in a chair. Denies any other concerns or questions. OBJECTIVE: VITAL SIGNS: She is afebrile, heart rate is 90, respirations 20, oxygen saturation is 94% on 2 liter s, blood pressure 125/61. CARDIOVASCULAR: S1, S2 plus. RESPIRATORY: Normal vesicular breath sounds. ABDOMEN: Soft, nontender, bowel sounds heard in all quadrants. EXTREMITIES: Without cyanosis or clubbing. Colostomy site is healthy. IMPRESSION: 1. Intestinal obstruction due to mass, status post colectomy and left-sided colostomy. 2. Improving hypokalemia. 3. Deconditioning. 4. Diabetes mellitus type 2. 5. Hypertension. 6. Gastroesophageal reflux disease. 7. Dyslipidemia. PLAN: 1. Give her another dose of potassium 20 mEq now. 2. Continue to encourage p.o. intake. 3. Physical therapy. 4. Deep venous thrombosis and stress ulcer prophylaxis. 5. Decubitus precautions. 6. Accu-Cheks. 7. Discussed with patient in detail and all questions answered.
[2017-04-03] MEDS: diphenhydrAMINE 25 MG CAP PO PRN (18:24)
[2017-04-03] MEDS: Gabapentin 300 MG CAP PO SCH (21:37)
[2017-04-03] MEDS: Simvastatin 40 MG TAB PO SCH (21:37)
[2017-04-03] MEDS: Melatonin 3 MG TAB PO SCH (21:38)
[2017-04-03] MEDS: Donepezil HCl 10 MG TAB PO SCH (21:39)
[2017-04-04 06:02] LABS: Anion Gap 11 mmol/L (10-20); BUN (Urea Nitrogen) 12 mg/dL (9.8-20.1); Calc. Creatinine Clearance 46 mL/min (70-130); Calcium 8.1 mg/dL (7.8-10.44); Carbon Dioxide 24 mmol/L (23-31); Chloride 101 mmol/L (98-107); Estimated GFR-MDRD 40; Glucose 130 mg/dL (83-110); Potassium 4.3 mmol/L (3.5-5.1); Sodium 132 mmol/L (136-145)
[2017-04-04] MEDS: Levothyroxine Sodium 50 MCG TAB PO SCH (06:11)
[2017-04-04 06:26] LABS: Band 11 % (5-11); Eosinophils 1 % (0-10); Hemoglobin 7.4 g/dL (12.0-16.0); Hypochromia MODERATE=16-30 cells (100X) (0-5/hpf); Lymphocytes 18 % (21-51); MDiff Complete? YES; Mean Corpuscular HGB CONC 30.6 g/dL (32.0-36.0); Mean Corpuscular Hemoglobin 23.9 pg (27.0-31.0); Mean Corpuscular Volume 78.2 fl (81.0-99.0); Mean Platelet Volume 6.5 fL (7.4-10.4); Metamyelocyte 2 % (0-0); Microcytosis SLIGHT = 6-15 cells (100X) (0-5/hpf); Monocytes 4 % (0-10); Neutrophil 64 % (42-75); PLT Morphology Comment Appears Adequate; Platelet Count 168 thou/uL (130-400); Poikilocytosis SLIGHT = 6-15 cells (100X) (0-5/hpf); RBC Distribution Width 15.6 % (11.5-14.5); Red Blood Cell (RBC) Count 3.08 mill/uL (4.20-5.40); Target Cells SLIGHT = 2-5 cells (100X) (0-1/hpf); White Blood Cell (WBC) Count 9.7 thou/uL (4.8-10.8)
[2017-04-04 07:08] LABS: Bilirubin Small (Negative); Blood, Urine Negative (Negative); Clarity Slightly Cloudy (Clear); Glucose, Urine (Dipstick) Negative (Negative); Leukocyte Small (Negative); Nitrite Negative (Negative); Protein, Urine (Dipstick) 100 mg/dL (Neg-Trace); Specific Gravity, Urine 1.015 (1.005-1.030); Urobilinogen 0.2 mg/dL (0.2-1.0)
[2017-04-04 07:13] LABS: Bacteria/HPF 1+ HPF (None Seen); RBC/HPF None Seen HPF (0-3); Squamous Epithelial 0-3 HPF (0-3)
[2017-04-04] MEDS: Metoclopramide HCl 10 MG/10 ML UDCUP PO SCH ×2 (09:26→21:21)
[2017-04-04] MEDS: TROSPIUM 20 MG TABLET PO SCH (09:27)
[2017-04-04] MEDS: Pioglitazone HCl 15 MG TAB PO SCH (09:27)
[2017-04-04] MEDS: HYDROcodone/Acetaminophen 10/325 mg Tablet PO PRN (09:27)
[2017-04-04] MEDS: Amlodipine 10 MG TAB PO SCH (09:28)
[2017-04-04] MEDS: Metoprolol Tartrate 50 MG TAB PO SCH ×2 (09:28→21:21)
[2017-04-04] MEDS: diphenhydrAMINE 25 MG CAP PO PRN ×2 (09:29→21:20)
[2017-04-04] MEDS: Simvastatin 40 MG TAB PO SCH (21:20)
[2017-04-04] MEDS: Gabapentin 300 MG CAP PO SCH (21:21)
[2017-04-04] MEDS: Donepezil HCl 10 MG TAB PO SCH (21:21)
[2017-04-04] MEDS: Melatonin 3 MG TAB PO SCH (21:21)
[2017-04-04] MEDS: Megestrol Acetate 400 MG/10 ML UDCUP PO SCH (21:22)
--- NOTE | 2017-04-04 23:37 | PRG ---
DATE OF SERVICE: 04/04/2017 DATE OF ADMISSION: 04/01/2017 HISTORY OF PRESENT ILLNESS: Ms. Wynn is a very pleasant 77-year-old white female admitted to the hospital by Dr. Joshi with left colon mass. She was taken the surgical suite, had no mass, but had multiple areas of fibrosis. She ended up having a left colectomy and colostomy done by Dr. Joshi. Postoperatively, she did well and was transferred here for physical therapy and occupational therapy to increase her strength and stamina. SUBJECTIVE: The patient states she is just not hungry. She does not feel well. She is weak. She h ad more anything. The nurses states she will not participate in therapy. She will not look at her c olostomy. We did have a long talk and told her that if she wants to go home and not to the retirement, she wo uld have to start walking and start eating. We will assist her eating with Megace 400 mg liquid twic e a day. PHYSICAL EXAMINATION: VITAL SIGNS: Reveal blood pressure 119/61, pulse 78, respirations 20, O2 saturation 97% on 2 liters, T-max 98.7. LABORATORY: Today revealed a white count 9700 with hemoglobin of 7.4, hematocrit 24.1 and platelet c ount 168,000. Her sodium is 132, potassium 4.3, chloride 101, carbon dioxide 24 with a BUN of 12, cr eatinine 1.28. Sugar this morning is 150. Urinalysis reveals 7-10 WBCs per high power field. PHYSICAL EXAMINATION: GENERAL: This is a well-developed, well-nourished, pleasant white female in no apparent distress at this time. HEENT: Reveals normocephalic, nontraumatic cranium. Pupils are equally round and reactive. Extraoc ular movements intact. Nose and throat are somewhat dry still. NECK: Supple, without masses, nodes or bruits. CHEST: Clear to auscultation. No rales, rhonchi or wheezes are heard. CARDIOVASCULAR: Heart reveals a regular rate and rhythm without murmurs, gallops or rubs. ABDOMEN: Soft, nontender, without organomegaly. Colostomy noted in the left lower quadrant. She hightower s a red rash underneath it. We will start some Lotrisone on that. GENITOURINARY: Otherwise deferred. EXTREMITIES: Reveal no clubbing, cyanosis or edema. NEUROLOGIC: The patient has no focal deficits. ASSESSMENT: 1. Status post left colectomy and colostomy. 2. Generalized weakness. 3. Hypertension. 4. Diabetes, stable. 5. Chronic gout. 6. Anemia. 7. Hyperlipidemia. 8. Diabetic neuropathy. 9. Insomnia. 10. Generalized weakness. 11. terminal block assembler memory loss. PLAN: 1. We will start the patient on Megace 400 mg b.i.d. 2. Lotrisone to the rash underneath her colostomy bag. 3. Continue to watch the patient's sugars closely. 4. Continue physical therapy and occupational therapy. 5. Deep venous thrombosis prophylaxis. 6. Stress ulcer prophylaxis. 7. Decubitus precautions.
[2017-04-05] MEDS: Levothyroxine Sodium 50 MCG TAB PO SCH (06:15)
[2017-04-05] MEDS: Metoclopramide HCl 10 MG/10 ML UDCUP PO SCH ×2 (08:39→20:10)
[2017-04-05] MEDS: TROSPIUM 20 MG TABLET PO SCH (08:40)
[2017-04-05] MEDS: Pioglitazone HCl 15 MG TAB PO SCH (08:40)
[2017-04-05] MEDS: Metoprolol Tartrate 50 MG TAB PO SCH ×2 (08:41→20:10)
[2017-04-05] MEDS: HYDROcodone/Acetaminophen 10/325 mg Tablet PO PRN (08:41)
[2017-04-05] MEDS: Megestrol Acetate 400 MG/10 ML UDCUP PO SCH (08:42)
[2017-04-05] MEDS: Amlodipine 10 MG TAB PO SCH (08:42)
[2017-04-05] MEDS ORDERED: Megestrol Acetate 800 MG/20 ML UDCUP PO SCH (09:30)
[2017-04-05] MEDS: Megestrol Acetate 800 MG/20 ML UDCUP PO SCH (20:09)
[2017-04-05] MEDS: diphenhydrAMINE 25 MG CAP PO PRN (20:10)
[2017-04-05] MEDS: Simvastatin 40 MG TAB PO SCH (20:11)
[2017-04-05] MEDS: Melatonin 3 MG TAB PO SCH (20:12)
[2017-04-05] MEDS: Gabapentin 300 MG CAP PO SCH (20:13)
[2017-04-05] MEDS: Donepezil HCl 10 MG TAB PO SCH (20:14)
[2017-04-06] MEDS: Levothyroxine Sodium 50 MCG TAB PO SCH (05:14)
--- NOTE | 2017-04-06 05:47 | PRG ---
DATE OF ADMISSION: 04/01/2017 DATE OF PROGRESS NOTE: 04/05/2017 HISTORY OF PRESENT ILLNESS: Ms. Wynn is a very pleasant 77-year-old white female, admitted by Dr. Joshi to [facility] for colon mass. She was taken to the surgical suite and had multiple area of fibrosis, but no masses found. She apparently had a left colectomy and colostomy done by Dr Poonam Joshi postoperatively, was stable, was transferred here for physical therapy and occupational the rapy. SUBJECTIVE: The patient said she is just tired and did not want to do anything. I had to have a good long talk with her about either getting stronger and going home or getting weaker and going to the [facility] or to hospice care. She opted for the former. PHYSICAL EXAMINATION: VITAL SIGNS: Revealed, blood pressure this evening was 122/57, pulse 77 and 84, respirations 18, O2 sat 94%. T-max 98.8. GENERAL: Reveals a well-developed, well-nourished, slightly obese white female in no apparent distre ss at this time. HEENT: Reveals normocephalic, nontraumatic cranium. Pupils are equally round and reactive. Extraoc ular movements are intact. Nose and throat are slightly dry. NECK: Supple, without masses, nodes, or bruits. CHEST: Clear to auscultation. No rales, rhonchi, or wheezes are heard. CARDIOVASCULAR: Reveals a regular rate and rhythm without murmurs, gallops, or rubs. ABDOMEN: Soft, nontender, without organomegaly. Normal bowel sounds are noted. No rebound or guard ing is noted. GENITOURINARY: Deferred. EXTREMITIES: Reveal no clubbing, cyanosis, or edema, just generalized weakness. IMPRESSION: 1. Status post left colectomy and colostomy. 2. Hypertension. 3. Diabetes, stable. 4. Chronic gout. 5. Anemia 6. Hyperlipidemia. 7. Diabetic neuropathy. 8. Insomnia. 9. Generalized weakness. 10. Long-term memory loss. PLAN: 1. Start the patient on Megace 400 mg b.i.d. 2. to rash underneath her colostomy bag. 3. Continue to watch patient's sugars closely. 4. Continue physical therapy and occupational therapy. 5. Deep venous thrombosis prophylaxis. 6. Stress ulcer prophylaxis. 7. Decubitus precautions.
[2017-04-06] MEDS: Metoclopramide HCl 10 MG/10 ML UDCUP PO SCH ×2 (08:35→19:47)
[2017-04-06] MEDS: Metoprolol Tartrate 50 MG TAB PO SCH ×2 (08:36→19:48)
[2017-04-06] MEDS: Pioglitazone HCl 15 MG TAB PO SCH (08:36)
[2017-04-06] MEDS: Megestrol Acetate 800 MG/20 ML UDCUP PO SCH ×2 (08:37→19:46)
[2017-04-06] MEDS: TROSPIUM 20 MG TABLET PO SCH (08:37)
[2017-04-06] MEDS: Amlodipine 10 MG TAB PO SCH (08:37)
[2017-04-06] MEDS: HYDROcodone/Acetaminophen 10/325 mg Tablet PO PRN (10:14)
--- NOTE | 2017-04-06 16:50 | ULT ---
ULTRASOUND WITH DOPPLER DUPLEX VENOUS LEFT UPPER EXTREMITY: DATE: 04/06/17. HISTORY: Left upper extremity swelling for 1 week. TECHNIQUE: Nelson scale, color flow, and spectral analysis, of the major veins of the left upper extremity. Compr ession applied to all vessels, except the subclavian. FINDINGS: There is patency with blood flow, and no thrombosis, of the left internal jugular, subclavian, cephal ic, brachial, basilic, radial, axillary, and ulnar veins. IMPRESSION: Negative. No deep vein thrombosis in the left upper extremity. POS: SUSAN
[2017-04-06] MEDS: Melatonin 3 MG TAB PO SCH (19:48)
[2017-04-06] MEDS: Gabapentin 300 MG CAP PO SCH (19:49)
[2017-04-06] MEDS: Simvastatin 40 MG TAB PO SCH (19:49)
[2017-04-06] MEDS: Donepezil HCl 10 MG TAB PO SCH (19:49)
--- NOTE | 2017-04-06 23:09 | PRG ---
DATE OF SERVICE: 04/06/2017 DATE OF ADMISSION: 04/01/2017 HISTORY: Ms. Wynn is a very pleasant 77-year-old white female who was admitted to [facility] with colon mass. She was taken to the surgical suite by Dr. Lio Joshi and not found to have any masses but multiple areas of fibrosis. She had a left colectomy and a colostomy done by Dr. Nura garcia. Postoperatively, she was stable and transferred here for physical therapy and occupational the rapy. SUBJECTIVE: The patient states she feels a little bit better today. Her appetite is a little bit be tter. She states she was able to walk from the bed to the bathroom and from the bathroom back to the bed. It was much better than it was yesterday. She said it was not as bad as she thought. PHYSICAL EXAMINATION: VITAL SIGNS: Reveals blood pressure of 115/58, pulse 70-77, respirations 16-1 8, O2 sat 96% on room air. LABORATORY DATA: No labs were done, but the Accu-Cheks reveal fasting this morning 124, last night b efore bedtime 159, yesterday morning fasting 150. PHYSICAL EXAMINATION: GENERAL: This is a well-developed, well-nourished, slightly obese white female, in no apparent distr ess at this time. HEENT: Reveals normocephalic, nontraumatic cranium. Pupils equal, round, and reactive. Extraocular movements are intact. The nose and throat are still dry. NECK: Supple, without masses, nodes, or bruits. CHEST: Clear to auscultation. No rales, no rhonchi, no wheezes, and no cough is noted. HEART: Reveals a regular rate and rhythm without murmurs, gallops, or rubs. ABDOMEN: Slightly obese, soft, nontender, without organomegaly. No rebound or guarding is noted. T he patient does have a colostomy left of midline. The rash is about the same, slightly better. GENITOURINARY: Deferred. EXTREMITIES: Reveal no clubbing, cyanosis, or edema. IMPRESSION: 1. 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 2. Hypertension. 3. Diabetes, stable. 4. Chronic gout. 5. Anemia. 6. Hyperlipidemia. 7. Diabetic neuropathy. 8. Insomnia. 9. Generalized weakness. 10. Long-term memory loss. PLAN: 1. Continue Megace 400 mg b.i.d. to help stimulate appetite. 2. Continue Lotrisone for rash underneath her colostomy bag. 3. Continue to watch the patient's Accu-Cheks a.c. and at bedtime. 4. Stress ulcer prophylaxis. 5. Decubitus precautions. 6. Deep venous thrombosis prophylaxis. 7. Physical therapy and occupational therapy.
[2017-04-07] MEDS: Levothyroxine Sodium 50 MCG TAB PO SCH (05:26)
[2017-04-07] MEDS: Megestrol Acetate 800 MG/20 ML UDCUP PO SCH ×2 (08:37→22:16)
[2017-04-07] MEDS: Metoclopramide HCl 10 MG/10 ML UDCUP PO SCH ×2 (08:37→22:16)
[2017-04-07] MEDS: TROSPIUM 20 MG TABLET PO SCH (08:38)
[2017-04-07] MEDS: Amlodipine 10 MG TAB PO SCH (08:38)
[2017-04-07] MEDS: Metoprolol Tartrate 50 MG TAB PO SCH ×2 (08:38→22:17)
[2017-04-07] MEDS: Pioglitazone HCl 15 MG TAB PO SCH (08:38)
[2017-04-07] MEDS: HYDROcodone/Acetaminophen 10/325 mg Tablet PO PRN (08:39)
--- NOTE | 2017-04-07 18:12 | PRG ---
DATE OF SERVICE: 04/07/2017 DATE OF ADMISSION: 04/01/2017 Ms. Wynn is a very pleasant 77-year-old white female. She was taken to [facility], seen by Dr. Joshi, taken to the surgical suite for colon mass. Fortunately, she had no significant mass to significant colon and fibrosis. She ended up having a left colectomy and colostomy done by Dr. Cristian rodriguez. Postoperatively, she was very weak. She [facility] SUBJECTIVE: The patient states she is somewhat tired. She walked several steps today and a little b it better today. She is eating a little bit better. She still does not like her colostomy. She is doing much better than she did yesterday. LABORATORY: Reveals point of care sugars fasting this morning was 140, before supper last night 181, before lunch 187, fasting yesterday morning is 124. PHYSICAL EXAMINATION: VITAL SIGNS: Revealed blood pressure is 106/54, pulse 69-80, respirations 16-18, O2 sat 96-97%, T-ma x 98.9. GENERAL: This is a well-developed, well-nourished, very pleasant white female in no apparent distres s at this time. HEENT: Reveals normocephalic, nontraumatic cranium. Pupils are equally round and reactive. Extraoc ular movements intact. Nose and throat are slightly dry. NECK: Supple, without masses, nodes or bruits. LUNGS: Chest is clear to auscultation. No rales, no rhonchi, no wheezes or cough is heard. CARDIOVASCULAR: Reveals a regular rate and rhythm without murmurs, gallops or rubs. ABDOMEN: Soft, obese, nontender, without organomegaly. No rebound or guarding is noted. Colostomy left midline is doing well, rashes improved. GENITOURINARY: Deferred. EXTREMITIES: Reveal no clubbing, cyanosis or edema. IMPRESSION: 1. Status post left colectomy and colostomy secondary to severe colonic fibrosis. 2. Hypertension. 3. Diabetes, stable. 4. Chronic gout. 5. Anemia. 6. Hyperlipidemia. 7. Diabetic nephropathy. 8. Insomnia. 9. Generalized weakness. 10. Long-term memory loss. PLAN: 1. Continue Megace 400 mg b.i.d. to stimulate appetite. 2. Continue Lotrisone for rash underneath the colostomy bag. 3. Watch patient's Accu-Cheks a.c. and at bedtime for diabetic control. 4. Stress ulcer prophylaxis. 5. Decubitus precautions. 6. Physical therapy and occupational therapy. 7. Deep venous thrombosis prophylaxis.
[2017-04-07] MEDS: Gabapentin 300 MG CAP PO SCH (22:17)
[2017-04-07] MEDS: Melatonin 3 MG TAB PO SCH (22:17)
[2017-04-07] MEDS: Simvastatin 40 MG TAB PO SCH (22:17)
[2017-04-07] MEDS: Donepezil HCl 10 MG TAB PO SCH (22:18)
[2017-04-08] MEDS: Levothyroxine Sodium 50 MCG TAB PO SCH (05:56)
--- NOTE | 2017-04-08 07:48 | PRG ---
DATE OF SERVICE: 04/08/2017 HISTORY OF PRESENT ILLNESS: Ms. Wynn is a very pleasant 77-year-old white female. She had multip le problems with her stomach and was taken to the [facility] where Dr. Joshi got a surgica l mask. She was taken to the surgical suite and unfortunately the turned out to be significant fibro sis of her colon. She had a left colectomy and a colostomy done by Dr. Joshi. Postoperatively, dimitri simon was very weak and not eating very well. She was transferred here for physical therapy, occupationa l therapy, and adjustment of her medications. SUBJECTIVE: The patient awakened this morning, she said she had a good night. She states she is sti ll very weak, but she is eating better. She said she will try to work a little harder with physical therapy. Nurses states she is not very motivated. LABORATORY DATA: No labs were done today, so we will do a CBC and comp met tomorrow. VITAL SIGNS: Blood pressure 108/58, pulse 65-80, respirations 16-18, O2 sat 97%. T-max 96.4. PHYSICAL EXAMINATION: GENERAL: This is a well-developed, well-nourished, slightly obese white female in no apparent distre ss at this time. HEENT: Reveals normocephalic, nontraumatic cranium. Pupils are equally round and reactive. Extraoc ular movements intact. Nose and throat are still slightly dry. NECK: Supple, without masses, nodes or bruits. LUNGS: Chest is clear to auscultation. No rales, rhonchi or wheezes are heard. No cough is noted. HEART: Reveals a regular rate and rhythm without murmurs, gallops or rubs. ABDOMEN: Soft, nontender, without organomegaly, normal bowel sounds are noted. No rebound or guardi ng is noted. The colostomy is clean and functioning well. It is left of midline and no significant irritation is noted. Her rash around the colostomy, most likely from the colostomy bag is much impro reema with Lotrisone cream. : Deferred. EXTREMITIES: Reveal no clubbing, cyanosis or edema. IMPRESSION: 1. Hypertension. 2. Diabetes, stable. 3. Anemia. 4. Hyperlipidemia. 5. Diabetic neuropathy. 6. 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 7. Chronic gout. 8. Insomnia. 9. Generalized weakness. 10. Long-term memory loss. PLAN: 1. Continue Megace 400 mg twice a day as an appetite stimulant. 2. Continue Lotrisone for rash beneath the colostomy bag. 3. Continue to follow the patient Accu-Cheks a.c. and at bedtime. 4. Stress ulcer prophylaxis. 5 Decubitus precaution. 6. Deep venous thrombosis prophylaxis. 7. Continue physical therapy and occupational therapy. 8. Dr. Maldonado is email operations manager for the .
[2017-04-08] MEDS: Megestrol Acetate 800 MG/20 ML UDCUP PO SCH ×2 (08:39→21:22)
[2017-04-08] MEDS: Metoclopramide HCl 10 MG/10 ML UDCUP PO SCH ×2 (08:40→21:22)
[2017-04-08] MEDS: TROSPIUM 20 MG TABLET PO SCH (08:42)
[2017-04-08] MEDS: Pioglitazone HCl 15 MG TAB PO SCH (08:42)
[2017-04-08] MEDS: Amlodipine 10 MG TAB PO SCH (08:42)
[2017-04-08] MEDS: Metoprolol Tartrate 50 MG TAB PO SCH ×2 (08:42→21:22)
[2017-04-08] MEDS: Gabapentin 300 MG CAP PO SCH (21:23)
[2017-04-08] MEDS: Melatonin 3 MG TAB PO SCH (21:23)
[2017-04-08] MEDS: Simvastatin 40 MG TAB PO SCH (21:23)
[2017-04-08] MEDS: Donepezil HCl 10 MG TAB PO SCH (21:23)
[2017-04-09] MEDS: Levothyroxine Sodium 50 MCG TAB PO SCH (05:28)
[2017-04-09 06:11] LABS: #Eosinphils 0.2 thou/uL (0.0-0.7); #Lymphocytes 1.8 thou/uL (1.20-3.40); #Monocytes 1.1 thou/uL (0.11-0.59); #Neutrophils 8.4 thou/uL (1.40-6.50); %Basophils 0.4 % (0.0-1.0); %Eosinophils 1.8 % (0.0-10.0); %Lymphocytes 15.9 % (21.0-51.0); %Monocytes 9.1 % (0.0-10.0); %Neutrophils 72.8 % (42.0-75.0); Anisocytosis SLIGHT = 6-15 cells (100X) (0-5/hpf); Elliptocytes SLIGHT = 2-5 cells (100X) (0-1/hpf); Hemoglobin 7.6 g/dL (12.0-16.0); MDiff Complete? YES; Mean Corpuscular HGB CONC 32.4 g/dL (32.0-36.0); Mean Corpuscular Hemoglobin 24.1 pg (27.0-31.0); Mean Corpuscular Volume 74.4 fl (81.0-99.0); Mean Platelet Volume 6.8 fL (7.4-10.4); Microcytosis SLIGHT = 6-15 cells (100X) (0-5/hpf); Platelet Count 247 thou/uL (130-400); RBC Distribution Width 15.5 % (11.5-14.5); Red Blood Cell (RBC) Count 3.16 mill/uL (4.20-5.40); White Blood Cell (WBC) Count 11.6 thou/uL (4.8-10.8)
[2017-04-09 06:21] LABS: ALT (SGPT) 9 U/L (8-55); AST (SGOT) 16 U/L (5-34); Albumin 2.1 g/dL (3.4-4.8); Alkaline Phosphatase 84 U/L (40-150); Anion Gap 11 mmol/L (10-20); BUN (Urea Nitrogen) 10 mg/dL (9.8-20.1); Bilirubin, Total 0.3 mg/dL (0.2-1.2); Calc. Creatinine Clearance 56 mL/min (70-130); Carbon Dioxide 25 mmol/L (23-31); Chloride 100 mmol/L (98-107); Estimated GFR-MDRD 50; Globulin 3.3 g/dL (2.4-3.5); Glucose 128 mg/dL (83-110); Potassium 3.3 mmol/L (3.5-5.1); Protein, Total 5.4 g/dL (6.0-8.3); Sodium 133 mmol/L (136-145)
[2017-04-09] MEDS: Megestrol Acetate 800 MG/20 ML UDCUP PO SCH ×2 (09:17→21:15)
[2017-04-09] MEDS: Metoclopramide HCl 10 MG/10 ML UDCUP PO SCH ×2 (09:18→21:16)
[2017-04-09] MEDS: Metoprolol Tartrate 50 MG TAB PO SCH ×2 (09:19→21:16)
[2017-04-09] MEDS: Pioglitazone HCl 15 MG TAB PO SCH (09:19)
[2017-04-09] MEDS: TROSPIUM 20 MG TABLET PO SCH (09:19)
[2017-04-09] MEDS: Amlodipine 10 MG TAB PO SCH (09:19)
--- NOTE | 2017-04-09 17:40 | PRG ---
DATE OF SERVICE: 04/09/2017 SUBJECTIVE: The patient is lying in the bed, resting well, minimal abdominal pain, good appetite. N o shortness of breath or chest pain. OBJECTIVE: VITAL SIGNS: Show temperature 96, pulse 70, respirations 18, blood pressure 120/57. LUNGS: Clear. CARDIOVASCULAR: Cardiac examination showed regular rhythm. ABDOMEN: Soft with minimal tenderness. Incision site, there is a well-healing colostomy. LABORATORY DATA: Shows white count 11,600, hematocrit 23, hemoglobin 7.6 up from 7.4. Sodium is 133 , potassium 3.3, chloride 100, bicarbonate 25, BUN 10, creatinine 1.06. Accu-Cheks 132 to 154. ASSESSMENT: 1. Stable hypertension. 2. Stable diabetes. 3. Stable status post left colectomy and colostomy for abdominal adhesions. 4. New onset of hypokalemia. 5. Persistent anemia with slight change. PLAN: 1. Start potassium chloride 10 mEq daily. 2. Continue pain relief as needed. 3. Continue Megace for appetite. 4. Continue blood pressure control. 5. Continue Accu-Cheks, monitor diabetes and pioglitazone.
[2017-04-09] MEDS: Melatonin 3 MG TAB PO SCH (21:16)
[2017-04-09] MEDS: Simvastatin 40 MG TAB PO SCH (21:16)
[2017-04-09] MEDS: Gabapentin 300 MG CAP PO SCH (21:16)
[2017-04-09] MEDS: Donepezil HCl 10 MG TAB PO SCH (21:16)
[2017-04-10] MEDS: Levothyroxine Sodium 50 MCG TAB PO SCH (05:58)
[2017-04-10] MEDS: TROSPIUM 20 MG TABLET PO SCH (10:34)
[2017-04-10] MEDS: Amlodipine 10 MG TAB PO SCH (10:34)
[2017-04-10] MEDS: Potassium Chloride 10 MEQ TAB PO SCH (10:35)
[2017-04-10] MEDS: Pioglitazone HCl 15 MG TAB PO SCH (10:35)
[2017-04-10] MEDS: Metoclopramide HCl 10 MG/10 ML UDCUP PO SCH ×2 (10:37→21:29)
[2017-04-10] MEDS: Metoprolol Tartrate 50 MG TAB PO SCH ×2 (10:37→21:30)
[2017-04-10] MEDS: Megestrol Acetate 800 MG/20 ML UDCUP PO SCH ×2 (10:38→21:29)
[2017-04-10] MEDS: Gabapentin 300 MG CAP PO SCH (21:30)
[2017-04-10] MEDS: Donepezil HCl 10 MG TAB PO SCH (21:30)
[2017-04-10] MEDS: Melatonin 3 MG TAB PO SCH (21:30)
[2017-04-10] MEDS: Simvastatin 40 MG TAB PO SCH (21:30)
[2017-04-11] MEDS: Levothyroxine Sodium 50 MCG TAB PO SCH (06:19)
[2017-04-11] MEDS: Metoclopramide HCl 10 MG/10 ML UDCUP PO SCH ×2 (09:12→21:04)
[2017-04-11] MEDS: Megestrol Acetate 800 MG/20 ML UDCUP PO SCH ×2 (09:13→21:04)
[2017-04-11] MEDS: Metoprolol Tartrate 50 MG TAB PO SCH ×2 (09:16→21:06)
[2017-04-11] MEDS: TROSPIUM 20 MG TABLET PO SCH (09:16)
[2017-04-11] MEDS: Pioglitazone HCl 15 MG TAB PO SCH (09:16)
[2017-04-11] MEDS: Potassium Chloride 10 MEQ TAB PO SCH (09:16)
[2017-04-11] MEDS: Amlodipine 10 MG TAB PO SCH (09:17)
[2017-04-11] MEDS: Melatonin 3 MG TAB PO SCH (21:06)
[2017-04-11] MEDS: Simvastatin 40 MG TAB PO SCH (21:07)
[2017-04-11] MEDS: Gabapentin 300 MG CAP PO SCH (21:07)
[2017-04-11] MEDS: Donepezil HCl 10 MG TAB PO SCH (21:07)
[2017-04-12] MEDS: HYDROcodone/Acetaminophen 10/325 mg Tablet PO PRN ×2 (01:28→08:16)
[2017-04-12] MEDS: diphenhydrAMINE 25 MG CAP PO PRN ×2 (01:29→22:04)
--- NOTE | 2017-04-12 04:00 | PRG ---
DATE OF SERVICE: 04/10/2017 SUBJECTIVE: The patient feels well. No complaints, eating somewhat better, having minimal abdominal pain. No nausea and vomiting. OBJECTIVE: LABORATORY: Accu-Cheks ranged 122-134. LUNGS: Clear. CARDIAC: Regular rhythm. ABDOMEN: Soft, nontender. VITAL SIGNS: Show temperature 97.6, pulse 76, respirations 18, blood pressure 123/57. ASSESSMENT: 1. Resolving partial colectomy and colostomy for adhesions. 2. Stable type 2 diabetes. 3. Stable hypertension. PLAN: 1. Continue Accu-Cheks and blood pressure control. 2. Continue pain relief. 3. Continue potassium chloride. 4. Check base met in several days.
--- NOTE | 2017-04-12 04:03 | PRG ---
DATE OF SERVICE: 04/11/2017 SUBJECTIVE: The patient feels well with no complaints, visiting with , eating some food from home. OBJECTIVE: VITAL SIGNS: Shows temperature is 97.7, pulse 79, respirations 18, O2 sats 92%, blood pressure 116/5 8. LUNGS: Clear. ABDOMEN: Abdomen is soft and nontender. ASSESSMENT: 1. Resolving partial colectomy and colostomy for adhesions. 2. Stable type 2 diabetes. 3. Stable hypertension. 4. Stable hypokalemia on supplementation. PLAN: 1. Obtain base met profile in the a.m. 2. Continue Accu-Cheks. 3. Continue blood pressure control. 4. Restart physical therapy tomorrow.
[2017-04-12 06:06] LABS: Anion Gap 12 mmol/L (10-20); BUN (Urea Nitrogen) 12 mg/dL (9.8-20.1); Calc. Creatinine Clearance 54 mL/min (70-130); Calcium 7.9 mg/dL (7.8-10.44); Carbon Dioxide 23 mmol/L (23-31); Chloride 102 mmol/L (98-107); Estimated GFR-MDRD 48; Glucose 128 mg/dL (83-110); Potassium 3.5 mmol/L (3.5-5.1); Sodium 133 mmol/L (136-145)
[2017-04-12] MEDS: Levothyroxine Sodium 50 MCG TAB PO SCH (06:11)
[2017-04-12] MEDS: Megestrol Acetate 800 MG/20 ML UDCUP PO SCH ×2 (08:14→22:02)
[2017-04-12] MEDS: Potassium Chloride 10 MEQ TAB PO SCH (08:15)
[2017-04-12] MEDS: Metoclopramide HCl 10 MG/10 ML UDCUP PO SCH ×2 (08:15→22:03)
[2017-04-12] MEDS: Pioglitazone HCl 15 MG TAB PO SCH (08:15)
[2017-04-12] MEDS: Amlodipine 10 MG TAB PO SCH (08:16)
[2017-04-12] MEDS: Metoprolol Tartrate 50 MG TAB PO SCH ×2 (08:16→22:03)
[2017-04-12] MEDS: TROSPIUM 20 MG TABLET PO SCH (08:16)
[2017-04-12] MEDS: Melatonin 3 MG TAB PO SCH (22:03)
[2017-04-12] MEDS: Gabapentin 300 MG CAP PO SCH (22:04)
[2017-04-12] MEDS: Simvastatin 40 MG TAB PO SCH (22:04)
[2017-04-12] MEDS: Donepezil HCl 10 MG TAB PO SCH (22:04)
[2017-04-13] MEDS: Levothyroxine Sodium 50 MCG TAB PO SCH (06:01)
--- NOTE | 2017-04-13 09:00 | PRG ---
DATE OF SERVICE: 04/12/2017 SUBJECTIVE: The patient feels well, sitting in bed, visiting with family with no complaints of nause a, vomiting, shortness of breath. Has been eating fairly well, but does not like hospital food. Den ies any abdominal pain. OBJECTIVE: Shows, ABDOMEN: Soft, minimally tender with healing colostomy. VITAL SIGNS: Show a temperature 96.1, pulse is 83, respirations 18, O2 sats 93% on room air, blood p ressure 130/68. LUNGS: Clear. CARDIAC EXAMINATION: Shows regular rhythm. No gallops or murmurs. LABORATORY DATA: Accu-Cheks range from 118-158. Sodium 133, potassium 3.5, chloride 102, bicarbonat e 23, BUN 12, creatinine 1.09. ASSESSMENT: 1. Resolving partial colectomy and colostomy for adhesions. 2. Stable type 2 diabetes. 3. Stable hypertension. 4. Hypokalemia, on supplementation. PLAN: Continue PT/OT. Continue Accu-Cheks for control of diabetes. Continue to monitor blood press ure.
[2017-04-13] MEDS: Metoprolol Tartrate 50 MG TAB PO SCH ×2 (12:06→21:27)
[2017-04-13] MEDS: Megestrol Acetate 800 MG/20 ML UDCUP PO SCH (12:06)
[2017-04-13] MEDS: Metoclopramide HCl 10 MG/10 ML UDCUP PO SCH ×2 (12:06→21:26)
[2017-04-13] MEDS: Pioglitazone HCl 15 MG TAB PO SCH (12:07)
[2017-04-13] MEDS: Amlodipine 10 MG TAB PO SCH (12:07)
[2017-04-13] MEDS: TROSPIUM 20 MG TABLET PO SCH (12:07)
[2017-04-13] MEDS: Potassium Chloride 10 MEQ TAB PO SCH (12:08)
[2017-04-13] MEDS: Megestrol Acetate 400 MG/10 ML UDCUP PO SCH (21:26)
[2017-04-13] MEDS: Gabapentin 300 MG CAP PO SCH (21:27)
[2017-04-13] MEDS: Simvastatin 40 MG TAB PO SCH (21:27)
[2017-04-13] MEDS: Melatonin 3 MG TAB PO SCH (21:27)
[2017-04-13] MEDS: Donepezil HCl 10 MG TAB PO SCH (21:27)
--- NOTE | 2017-04-13 23:28 | PRG ---
DATE OF SERVICE: 04/13/2017 DATE OF ADMISSION: 04/01/2017 HISTORY OF PRESENT ILLNESS: Ms. Wynn is a very pleasant 77-year-old white female with multiple pr oblems. She was taken to [facility] with abdominal pain and a possible mass. She has taken the surgical suite by Dr. Joshi and found to have significant fibrosis upper colon for multiple ep isodes of diverticulitis. Colostomy and left colectomy were done by Dr. Joshi. Postoperatively, s he has been very weak and barely able to walk. She was transferred to [facility] for physical therapy, occupational therapy, and adjustment of her medications. SUBJECTIVE: The patient states she is tired and she does not want to do any more physical therapy. She states she is [facility]. We will make arrangements to transfer her most isaac campos on Tuesday. We will make arrangements [facility]. LABORATORY: Reveals actually no recent labs were done since the , which were all within normal l imits. PHYSICAL EXAMINATION: GENERAL: This is a well-developed, well-nourished, slightly obese white female in no apparent distre ss at this time. VITAL SIGNS: Reveal blood pressure 132/60, pulse 72 to 83, respirations 18, O2 sat 95% on room air. T-max 97.5. HEENT: Reveals normocephalic, nontraumatic cranium. Pupils are equally round and reactive. Extraoc ular movements intact. Nose and throat are slightly dry, but clear. NECK: Supple, without masses, nodes or bruits. LUNGS: Chest is clear to auscultation. No rales or rhonchi, no wheezes are heard. No cough is note d. HEART: Reveals a regular rate and rhythm without murmurs, gallops or rubs. ABDOMEN: Obese, soft, nontender, without organomegaly. Normal bowel sounds are noted. Colostomy is still clean. Left sided rash noted to be much improved. : Deferred. EXTREMITIES: Reveal no clubbing, cyanosis or edema. IMPRESSION: 1. Hypertension. 2. Diabetes, stable. 3. Anemia. 4. Hyperlipidemia. 5. Diabetic neuropathy. 6. 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 7. Chronic gout. 8. Insomnia. 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 10. Generalized weakness. PLAN: 1. Continue Megace 400 mg b.i.d. as appetite stimulant. 2. Continue Lotrisone for rash beneath the colostomy bag. 3. Continue to follow the patient's diabetes with Accu-Cheks a.c. and at bedtime. 4. Stress ulcer prophylaxis. 5. Decubitus precautions. 6. Deep venous thrombosis prophylaxis. 7. Continue physical therapy and occupational therapy.
[2017-04-14] MEDS: Levothyroxine Sodium 50 MCG TAB PO SCH (06:10)
[2017-04-14] MEDS: Megestrol Acetate 400 MG/10 ML UDCUP PO SCH ×2 (08:45→21:42)
[2017-04-14] MEDS: Metoclopramide HCl 10 MG/10 ML UDCUP PO SCH ×2 (08:45→21:42)
[2017-04-14] MEDS: Pioglitazone HCl 15 MG TAB PO SCH (08:47)
[2017-04-14] MEDS: TROSPIUM 20 MG TABLET PO SCH (08:47)
[2017-04-14] MEDS: Metoprolol Tartrate 50 MG TAB PO SCH ×2 (08:47→21:41)
[2017-04-14] MEDS: Amlodipine 10 MG TAB PO SCH (08:47)
[2017-04-14] MEDS: Potassium Chloride 10 MEQ TAB PO SCH (08:50)
[2017-04-14] MEDS: Gabapentin 300 MG CAP PO SCH (21:40)
[2017-04-14] MEDS: Simvastatin 40 MG TAB PO SCH (21:41)
[2017-04-14] MEDS: Donepezil HCl 10 MG TAB PO SCH (21:41)
[2017-04-14] MEDS: Melatonin 3 MG TAB PO SCH (21:41)
--- NOTE | 2017-04-15 01:25 | PRG ---
DATE OF ADMISSION: 04/01/2017 DATE OF SERVICE: 04/14/2017 HISTORY OF PRESENT ILLNESS: Ms. Wynn is a very pleasant 77-year-old white female with multiple me dical problems. She went to [facility] with acute abdominal pain. She has t aken to the surgical suite by Dr. Joshi, found to have no colon mass, but it is significant fibroti c colon with multiple areas of diverticulitis. This was removed and she had a left colectomy. Colos casi was placed by Dr. Joshi and the patient was eventually stabilized and transferred to [facility] for physical therapy and occupational therapy. OBJECTIVE: VITAL SIGNS: Blood pressure this morning was 122/64, pulse 75, respirations 18, O2 sat 96-98%. T-ma x is 97.6. Accu-Cheks reveal blood sugar this morning 114, before lunch 108, before supper 124. GENERAL: This is a well-developed, slightly obese, white female, in no apparent distress at this madeline e. HEENT: Reveals normocephalic, nontraumatic cranium. Pupils are equally round and reactive. Extraoc ular movements are intact. Nose and throat are slightly dry. NECK: Supple, without masses, nodes, or bruits. CHEST: Clear to auscultation. No rales, no rhonchi, no wheezes are heard. HEART: Reveals a regular rate and rhythm without murmurs, gallops, or rubs. ABDOMEN: Soft, nontender, without organomegaly. Normal bowel sounds are noted. No rebound or guard ing is noted. GENITOURINARY: Deferred. EXTREMITIES: Reveal no clubbing, cyanosis, or edema. IMPRESSION: 1. Hypertension. 2. Diabetes, which is stable. 3. Anemia. 4. Hyperlipidemia. 5. Status post left colectomy and colostomy secondary to severe colonic fibrosis. 6. Diabetic neuropathy. 7. Insomnia. 8. Chronic gout. 9. Long-term memory loss. 10. Generalized weakness. PLAN: 1. Continue to encourage the patient to eat. 2. Continue Megace 400 mg b.i.d. 3. Continue Lotrisone for rash beneath colostomy bag. 4. Continue to follow the patient's diabetes with Accu-Cheks a.c. and at bedtime. 5. Stress ulcer prophylaxis. 6. Decubitus precautions. 7. DVT thrombosis prophylaxis. 8. Continue physical therapy and occupational therapy.
[2017-04-15] MEDS: Levothyroxine Sodium 50 MCG TAB PO SCH (06:05)
[2017-04-15 08:48] VITALS: BP 108/56; TEMP 98.7
[2017-04-15] MEDS: Megestrol Acetate 400 MG/10 ML UDCUP PO SCH (08:55)
[2017-04-15] MEDS: Potassium Chloride 10 MEQ TAB PO SCH (08:55)
[2017-04-15] MEDS: Metoclopramide HCl 10 MG/10 ML UDCUP PO SCH (08:56)
[2017-04-15] MEDS: Metoprolol Tartrate 50 MG TAB PO SCH (08:56)
[2017-04-15] MEDS: Amlodipine 10 MG TAB PO SCH (08:56)
[2017-04-15] MEDS: Pioglitazone HCl 15 MG TAB PO SCH (08:56)
[2017-04-15] MEDS: TROSPIUM 20 MG TABLET PO SCH (08:58)
--- NOTE | 2017-04-15 19:13 | DIS ---
DATE OF ADMISSION: 04/01/2017 DATE OF DISCHARGE: 04/15/2017 HOSPITAL COURSE: Ms. Wynn is a very pleasant 77-year-old white female with multiple medical probl ems. She had abdominal pain, was seen at [place] emergency room, was admitted. She was taken to the surgical suite by Dr. Joshi expecting to find a mass in her abdomen. He found fortunately sign ificant fibrotic colon. This was removed and a left colectomy was done. She did end up having a col ostomy done. Postoperatively, she did fairly well, was transferred to [facility] for physical therapy and occupational therapy. She has now reached maximum medical benefit at [facility]. She is pretty much platea ued with physical therapy and occupational therapy and actually, she has just become complacent about doing it and that does not want to eat, drink, or do her therapy. Vital signs today reveal a blood pressure of 108/56, pulse 77-83, respirations 18, O2 sat 96%-100%, T -max 98.7. Laboratory reveals white count 11,600 with hemoglobin 7.6, hematocrit 23.5, and a platele t count of 247,000, is slowly improving. Chemistry reveals her last sodium was 133, with a potassium of 5.3, chloride 102, carbon dioxide 23, with a BUN of 12, creatinine 1.09. GFR was 48. Knhdw-wr-[id number] sugar this morning was 119. Hemoglobi n A1c was 6.8. Last TSH was 1.9. Last vitamin D was 18.9. PHYSICAL EXAMINATION: GENERAL: This is a well-developed, well-nourished, very pleasant, slightly obese white female in no apparent distress at this time. HEENT: Reveals normocephalic, atraumatic cranium. Pupils are equally round and reactive. Extraocul ar movements are intact. Nose and throat are slightly dry. NECK: Supple without masses, nodes, or bruits. CHEST: Clear to auscultation. No rales, rhonchi, or wheezes are heard. HEART: Reveals a regular rate and rhythm without murmurs, gallops, or rubs. ABDOMEN: Soft, nontender, without organomegaly, normal bowel sounds are noted. No rebound or guardi ng is noted. Colostomy is noted in the left lower abdomen, it is not leaking, is functioning well. GENITOURINARY: Deferred. EXTREMITIES: Reveal no clubbing, cyanosis, or edema. IMPRESSION: 1. Hypertension. 2. Diabetes, stable. 3. Anemia, stable and improving. 4. Hyperlipidemia. 5. Status post left colectomy and colostomy secondary to severe colonic fibrosis. 6. Diabetic neuropathy. 7. Insomnia. 8. Chronic gout. 9. Long-term memory loss. 10. Generalized weakness. PLAN: 1. The patient is being transferred to [facility] today. 2. Continue to encourage the patient to eat. 3. Continue Megace 400 mg twice a day. 4. Continue to follow the patient's diabetes with Accu-Cheks a.c. and at bedtime. 5. Continue stress ulcer prophylaxis. 6. Continue decubitus precautions. 7. Continue physical therapy and occupational therapy. PRESENT MEDICATIONS: Will be the followin. Norvasc 10 mg q.a.m. 2. Benadryl 25 mg q.6 hours p.r.n. itching. 3. Aricept 10 mg at bedtime. 4. Cymbalta 60 mg at q.a.m. 5. Neurontin 300 mg at bedtime. 6. Levothyroxine 50 mcg a day. 7. Megace 400 mg twice a day. 8. Melatonin 9 mg at bedtime. 9. Reglan 5 mg twice a day. 10. Lopressor 100 mg twice a day. 11. Zofran 4 mg q.6 hours p.r.n. nausea and vomiting. 12. Protonix 40 mg daily. 13. Pioglitazone 30 mg every morning. 14. Potassium chloride 10 mEq daily. 15. Zocor 20 mg at bedtime. 16. Trospium 20 mg q. day. I will continue to follow the patient at [facility].
== END 2017-04-15 13:00 | DRG 390 ==
LOC: NAV ACUTE 12:46
PROVIDERS: ADMIT Family Medicine; ATTEND Family Medicine
DX: K56.609 Unspecified intestinal obstruction, unspecified as to partial versus complete obstruction (principal); E11.40 Type 2 diabetes mellitus with diabetic neuropathy, unspecified; D64.9 Anemia, unspecified; F03.90 Unspecified dementia, unspecified severity, without behavioral disturbance, psychotic disturbance, mood disturbance, and anxiety; I10 Essential (primary) hypertension; M1A.9XX0 Chronic gout, unspecified, without tophus (tophi); E78.5 Hyperlipidemia, unspecified; E87.6 Hypokalemia; K21.9 Gastro-esophageal reflux disease without esophagitis; G47.00 Insomnia, unspecified; E66.9 Obesity, unspecified; R53.1 Weakness; R41.3 Other amnesia; Z93.3 Colostomy status; Z68.29 Body mass index [BMI] 29.0-29.9, adult; Z96.641 Presence of right artificial hip joint; Z89.422 Acquired absence of other left toe(s); Z88.5 Allergy status to narcotic agent; Z88.8 Allergy status to other drugs, medicaments and biological substances; Z90.49 Acquired absence of other specified parts of digestive tract; Z82.49 Family history of ischemic heart disease and other diseases of the circulatory system; Z80.1 Family history of malignant neoplasm of trachea, bronchus and lung; Z80.51 Family history of malignant neoplasm of kidney; Z80.9 Family history of malignant neoplasm, unspecified
CPT/HCPCS: 36415; 36416; 80048; 80053; 81001; 85025; Q0162

== ENCOUNTER 2017-05-11 20:40 | Emergency (ER) | payer MEDICARE ==
--- NOTE | 2017-05-11 21:37 | CT ---
CT BRAIN 05/11/17 PROVIDED CLINICAL HISTORY: Head pain status post injury. FINDINGS: Comparison 02/20/16. The ventricular system appears normal in size and morphology. There is no evidence for intracranial h emorrhage or mass effect. There is right frontal scalp swelling without evidence for skull fracture. IMPRESSION: No evidence for intracranial hemorrhage or skull fracture. POS: [facility]
== END 2017-05-11 21:38 ==
LOC: NAV ERS 20:40
DX: S00.83XA Contusion of other part of head, initial encounter (principal); S20.229A Contusion of unspecified back wall of thorax, initial encounter; I11.0 Hypertensive heart disease with heart failure; I50.9 Heart failure, unspecified; F03.90 Unspecified dementia, unspecified severity, without behavioral disturbance, psychotic disturbance, mood disturbance, and anxiety; M10.9 Gout, unspecified; G47.00 Insomnia, unspecified; I25.10 Atherosclerotic heart disease of native coronary artery without angina pectoris; E11.40 Type 2 diabetes mellitus with diabetic neuropathy, unspecified; E78.5 Hyperlipidemia, unspecified; M19.90 Unspecified osteoarthritis, unspecified site; F41.9 Anxiety disorder, unspecified; F32.9 Major depressive disorder, single episode, unspecified; Z79.899 Other long term (current) drug therapy; W06.XXXA Fall from bed, initial encounter; Y92.129 Unspecified place in nursing home as the place of occurrence of the external cause
CPT/HCPCS: 70450